=== PATIENT | female | born 1945 | race Caucasian/White ===

== ENCOUNTER 2016-04-20 13:25 | Emergency (ER) | payer MEDICARE ==
[~2016-04-20] VITALS: Ht 165.1 cm; Wt 115.0 kg
[2016-04-20 13:28] VITALS: BP 180/106; PULSE 80; RESP 20; TEMP 98.5; O2SAT 94
[2016-04-20 13:36] VITALS: TEMP 99.6
[2016-04-20] MEDS ORDERED: PRIL20CA9 PO (13:47)
[2016-04-20] MEDS ORDERED: FERR325T PO (13:47)
[2016-04-20] MEDS ORDERED: VALS1TAB64 PO (13:47)
[2016-04-20] MEDS ORDERED: OXYC-432 PO (13:47)
[2016-04-20] MEDS ORDERED: XANA1TAB2 PO (13:47)
[2016-04-20] MEDS ORDERED: ASPI-110 PO (13:47)
[2016-04-20] MEDS ORDERED: CELE20TA PO (13:47)
[2016-04-20] MEDS ORDERED: VIST25CA PO (14:10)
--- NOTE | 2016-04-20 14:11 | PD ---
HPI Chief Complaint: Psychiatric Symptoms Time Seen by Provider: 13:36 Travel History International Travel<30 days: No Contact w/Intl Traveler<30days: No Traveled to known affect area: No History of Present Illness HPI This 70-year-old woman who presents to the emergency department complaining of feeling poorly. She was discharged about an hour ago from [facility]. She states she was referred here because she was having anxiety. She states she was taking oxycodone regularly up until a couple days ago. She ran out of that she began to feel poorly, vomiting, chest pain, jitteriness. States she was admitted for tonight's of [facility] where they did lots of tests on her. States she was told everything was good discharge. She asked about treatment for her anxiety how bad she was feeling she was referred to [facility]. History Past Medical History Narrative Medical Borderline diabetes Anxiety and depression Chest pain Influenza Vaccination: Yes Social History Alcohol Use: No Tobacco Use: No Allergies-Medications (Allergen,Severity, Reaction): Coded Allergies: Lisinopril (Verified Allergy, Intermediate, COUGHING, 04/20/16) Reported Meds & Prescriptions Reported Meds & Active Scripts Active Reported Oxycodone-Acetaminophen 5-325 mg Tab 1 Tab PO TID PRN Xanax (Alprazolam) 1 Mg Tab 1 Mg PO BID Prilosec (Omeprazole) 20 Mg Cap 20 Mg PO DAILY Aspirin 81 (Aspirin) 81 Mg Tabdr 81 Mg PO DAILY Ferrous Sulfate 325 Mg Tab 350 Mg PO BID Celexa (Citalopram Hydrobromide) 20 Mg Tab 20 Mg PO DAILY Valsartan 80 Mg Tab 80 Mg PO DAILY Review of Systems Except as stated in HPI: all other systems reviewed are Neg Physical Exam Narrative GENERAL: 70-year-old woman, no acute distress. SKIN: Warm and dry. HEAD: Atraumatic. Normocephalic. EYES: Pupils equal and round. No scleral icterus. No injection or drainage. ENT: No nasal bleeding or discharge. Mucous membranes pink and moist. NECK: Trachea midline. No JVD. CARDIOVASCULAR: Regular rate and rhythm. No murmur appreciated. RESPIRATORY: No accessory muscle use. Clear to auscultation. Breath sounds equal bilaterally. GASTROINTESTINAL: Abdomen soft, non-tender, nondistended. Hepatic and splenic margins not palpable. MUSCULOSKELETAL: No obvious deformities. No clubbing. No cyanosis. No edema. NEUROLOGICAL: Awake and alert. No obvious cranial nerve deficits. Motor grossly within normal limits. Normal speech. PSYCHIATRIC: Anxious. Data Data Last Documented VS Vital Signs Date Time Temp Pulse Resp B/P Pulse Ox O2 Delivery O2 Flow Rate FiO2 04/20/16 13:36 99.6 04/20/16 13:28 80 20 180/106 94 Room Air MDM Medical Decision Making Medical Screen Exam Complete: Yes Emergency Medical Condition: Yes Differential Diagnosis Anxiety, wobbliness, opiate withdrawal, other Narrative Course Medical decision making 7 year-old woman presents emergency department hour after being discharged from the hospital for treatment of what sounds like probably opiate withdrawal symptoms. She apparently had a chest pain workup. She looks well. She is slightly tearful. She states she was treated for anxiety in the past. I asked about family or friends as she seems to be afraid to go home by herself. States her sister doesn't have time for her. I don't think there is any reason to readmit her to the hospital or keep her for an emergency psychiatric does not suicidal or homicidal. She was on benzodiazepines previously. I recommended that she follow-up with her primary doctor, use the Phenergan as needed for symptom relief. We'll give her Vistaril as needed for anxiety symptoms as well. Diagnosis Primary Impression: Anxiety Additional Impression: Opiate withdrawal Additional Instructions: Continue current medications. Continue promethazine/Phenergan as prescribed by Seema schafer as needed for vomiting. Use Vistaril as needed for anxiety. Follow-up with your primary doctor on Friday. Med/Other Pt SpecificInfo: Prescription(s) given Scripts Hydroxyzine Pamoate (Vistaril)25 Mg Cap25 Mg PO TID PRN (ANXIETY) #15 CAP Ref 0 Prov:Dickson Arciniega MD 04/20/16 Disposition: 01 DISCHARGE HOME Condition: Stable Dickson Arciniega MD Apr 20, 2016 14:11
== END 2016-04-20 15:08 | disposition home or self-care (01) ==
LOC: NEPC 13:25
DX: F41.9 Anxiety disorder, unspecified (principal); F11.23 Opioid dependence with withdrawal; R07.9 Chest pain, unspecified; R11.10 Vomiting, unspecified
CPT/HCPCS: 99283

== ENCOUNTER 2016-05-02 15:30 | Inpatient (IN) | payer OTHER, MEDICARE ==
[~2016-05-02] VITALS: Ht 165.1 cm; Wt 116.9 kg
[~2016-05-02 15:30] MED LIST: ASPI-110 PO; CELE20TA PO; FERR325T PO; OXYC-432 PO; PRIL20CA9 PO; VALS1TAB64 PO; VIST25CA PO; XANA1TAB2 PO
[2016-05-02 15:38] VITALS: BP 145/84; PULSE 97; RESP 16; TEMP 98.8; O2SAT 97
--- NOTE | 2016-05-02 15:57 | PD ---
HPI Chief Complaint: Psychiatric Symptoms Time Seen by Provider: 15:57 Travel History International Travel<30 days: No Contact w/Intl Traveler<30days: No Traveled to known affect area: No History of Present Illness HPI 70-year-old female presents to the emergency Department under Lacy act by her psychiatrist for bipolar 1 disorder, suicidal ideation. The patient does state that she will "wants to ". She states that she is sick of being in pain and she does not want to live anymore. She does also report hallucinations. Patient does report feeling nauseated. She does also report history of hypertension. She states she is on a blood pressure medication and Wellbutrin. The patient denies any attempt to hurt herself, but does state that she would like to . She denies any specific planned, but states "there are a lot of ways to kill myself". Patient reports being hospitalized for psychiatric illness in the past. She denies any other complaints at this time. PFSH Past Medical History Anxiety: Yes Depression: Yes Chest Pain: Yes Diabetes: Yes (BORDERLINE) Hypertension: Yes Psychiatric: Yes (ANXIETY / DEPRESSION) Social History Alcohol Use: No Tobacco Use: No Substance Use: No Allergies-Medications (Allergen,Severity, Reaction): Coded Allergies: Lisinopril (Verified Allergy, Intermediate, COUGHING, 05/02/16) Reported Meds & Prescriptions Reported Meds & Active Scripts Active Vistaril (Hydroxyzine Pamoate) 25 Mg Cap 25 Mg PO TID PRN Reported Tylenol-Codeine #3 (Acetaminophen-Codeine) 300-30 mg Tab 1 Tab PO Q6HR PRN Nitrofurantoin Macrocrystal 100 Mg Cap 100 Mg PO BID Flexeril (Cyclobenzaprine HCl) 10 Mg Tab 10 Mg PO DAILY Zofran (Ondansetron HCl) 4 Mg Tab 4 Mg PO Q6HR PRN Wellbutrin SR 12 HR (Bupropion HCl) 150 Mg Tab 150 Mg PO DAILY Trazodone (Trazodone HCl) 150 Mg Tab 150 Mg PO HS Xanax (Alprazolam) 1 Mg Tab 1 Mg PO BID Prilosec (Omeprazole) 20 Mg Cap 20 Mg PO DAILY Aspirin 81 (Aspirin) 81 Mg Tabdr 81 Mg PO DAILY Ferrous Sulfate 325 Mg Tab 350 Mg PO BID Celexa (Citalopram Hydrobromide) 20 Mg Tab 20 Mg PO DAILY Valsartan 80 Mg Tab 80 Mg PO DAILY Review of Systems Except as stated in HPI: all other systems reviewed are Neg Physical Exam Narrative GENERAL: Well-developed well-nourished elderly female patient, afebrile. SKIN: Warm and dry. HEAD: Normocephalic. Atraumatic. EYES: No scleral icterus. No injection or drainage. NECK: Supple, trachea midline. No JVD or lymphadenopathy. CARDIOVASCULAR: Regular rate and rhythm without murmurs, gallops, or rubs. RESPIRATORY: Breath sounds equal bilaterally. No accessory muscle use. Lungs sounds are clear to auscultation. GASTROINTESTINAL: Abdomen soft, non-tender, nondistended. MUSCULOSKELETAL: No cyanosis, or edema. BACK: Nontender without obvious deformity. No CVA tenderness. Data Data Last Documented VS Vital Signs Date Time Temp Pulse Resp B/P Pulse Ox O2 Delivery O2 Flow Rate FiO2 05/02/16 15:38 98.8 97 16 145/84 97 Orders Complete Blood Count With Diff (05/02/16 15:40) Comprehensive Metabolic Panel (05/02/16 15:40) Drug Screen, Random Urine (05/02/16 15:40) Alcohol (Ethanol) (05/02/16 15:40) Psych Screen (05/02/16 15:40) Urinalysis - C+S If Indicated (05/02/16 15:56) Ondansetron Odt (Zofran Odt) (05/02/16 16:00) Diet Regular Basic (05/02/16 Dinner) Ondansetron Odt (Zofran Odt) (05/02/16 18:15) Acetaminophen (Tylenol) (05/02/16 20:00) Magnesium Hydroxide Liq (Milk Of Magnesi (05/02/16 20:00) Al-Mag Hy-Si 40-40-4 Mg/Ml Liq (Mag-Al P (05/02/16 20:00) Nicotine 21 Mg Patch.24 Hr (Habitrol 21 (05/03/16 09:00) Remove Old Patch (05/02/16 21:00) Trazodone (Desyrel) (05/02/16 21:00) Labs Laboratory Tests Test 1/19/17 1/19/17 1/19/17 16:46 17:25 19:11 Sodium Level 134 MEQ/L Potassium Level 5.5 MEQ/L Chloride Level 104 MEQ/L Carbon Dioxide Level 21.8 MEQ/L Anion Gap 8 MEQ/L Blood Urea Nitrogen 6 MG/DL Creatinine 0.89 MG/DL Estimat Glomerular Filtration 63 ML/MIN Rate Random Glucose 90 MG/DL Calcium Level 9.2 MG/DL Total Bilirubin 0.4 MG/DL Aspartate Amino Transf 43 U/L (AST/SGOT) Alanine Aminotransferase 23 U/L (ALT/SGPT) Alkaline Phosphatase 108 U/L Total Protein 8.6 GM/DL Albumin 3.1 GM/DL Ethyl Alcohol Level LESS THAN 3 MG/DL Urine Color DARK-YELLOW Urine Turbidity CLEAR Urine pH 8.0 Urine Specific [place] 1.010 Urine Protein NEG mg/dL Urine Glucose (UA) NEG mg/dL Urine Ketones NEG mg/dL Urine Occult Blood NEG Urine Nitrite NEG Urine Bilirubin NEG Urine Urobilinogen LESS THAN 2.0 MG/DL Urine Leukocyte Esterase NEG Urine RBC LESS THAN 1 /hpf Urine WBC 1 /hpf Urine Squamous Epithelial 2 /hpf Cells Urine Bacteria RARE /hpf Microscopic Urinalysis Comment CULT NOT INDICATED Urine Opiates Screen POS Urine Barbiturates Screen NEG Urine Amphetamines Screen NEG Urine Benzodiazepines Screen NEG Urine Cocaine Screen NEG Urine Cannabinoids Screen NEG White Blood Count 8.1 TH/MM3 Red Blood Count 3.89 MIL/MM3 Hemoglobin 11.7 GM/DL Hematocrit 35.2 % Mean Corpuscular Volume 90.6 FL Mean Corpuscular Hemoglobin 30.0 PG Mean Corpuscular Hemoglobin 33.1 % Concent Red Cell Distribution Width 15.6 % Platelet Count 368 TH/MM3 Mean Platelet Volume 7.5 FL Neutrophils (%) (Auto) 69.8 % Lymphocytes (%) (Auto) 18.4 % Monocytes (%) (Auto) 9.1 % Eosinophils (%) (Auto) 1.8 % Basophils (%) (Auto) 0.9 % Neutrophils # (Auto) 5.7 TH/MM3 Lymphocytes # (Auto) 1.5 TH/MM3 Monocytes # (Auto) 0.7 TH/MM3 Eosinophils # (Auto) 0.1 TH/MM3 Basophils # (Auto) 0.1 TH/MM3 CBC Comment DIFF FINAL Differential Comment MDM Medical Decision Making Medical Screen Exam Complete: Yes Emergency Medical Condition: Yes Medical Record Reviewed: Yes Differential Diagnosis bipolar disorder versus depression versus anxiety versus schizophrenia versus psychosis Narrative Course 70-year-old female presents to the emergency Department a Lacy act by her psychiatrist for suicidal ideation. CBC, CMP, urine drug screen, alcohol level , UA are ordered and pending. CBC shows no acute abnormalities. CMP shows hyperkalemia 5.5, no other acute abnormalities. Urine drug screen is positive for opiates. Alcohol level is less than 3. UA is negative for infection. Patient is given Kayexalate 15 g by mouth. Patient is medically cleared for psychiatric screening and disposition. Mental health screening discussed with the patient. Psychiatric screen ordered. Diagnosis Primary Impression: Bipolar disorder Qualified Code: F31.32 - Bipolar affective disorder, currently depressed, moderate Additional Instructions: The patient is medically cleared for psychiatric screening and disposition. Condition: Stable MarvAdri May 02, 2016 15:57
[2016-05-02] MEDS ORDERED: ONDANSETRON ODT 4 MG TAB PO ONE ×2 (16:00→18:15)
[2016-05-02 17:22] LABS: ANION GAP 8 MEQ/L (5-15)
[2016-05-02 17:23] LABS: ALKALINE PHOSPHATASE 108 U/L (45-117); ALT (GPT) 23 U/L (10-53); AST (GOT) 43 U/L (15-37); BICARBONATE 21.8 MEQ/L (21.0-32.0); BLOOD UREA NITROGEN 6 MG/DL (7-18); CHLORIDE 104 MEQ/L (98-107); GLOMERULAR FILTRATION RATE 63 ML/MIN (>89); POTASSIUM 5.5 MEQ/L (3.5-5.1); SODIUM (NA) 134 MEQ/L (136-145); TOTAL BILIRUBIN ADULT 0.4 MG/DL (0.2-1.0)
[2016-05-02] MEDS ORDERED: TRAZ150T75 PO (17:41)
[2016-05-02] MEDS ORDERED: BENZ2TAB PO (17:41)
[2016-05-02] MEDS ORDERED: BUPR150CR PO (17:41)
[2016-05-02] MEDS ORDERED: RISP1TAB2 PO (17:41)
[2016-05-02] MEDS ORDERED: ZOFR4TAB PO (18:02)
[2016-05-02] MEDS ORDERED: NITR1CAP36 PO (18:03)
[2016-05-02] MEDS ORDERED: CYCL1TAB29 PO (18:03)
[2016-05-02] MEDS ORDERED: TYLETAB34 PO (18:05)
[2016-05-02 18:08] LABS: AMPHETAMINE, URINE NEG (NEG); BARBITURATES, URINE NEG (NEG); COCAINE, URINE NEG (NEG)
[2016-05-02 18:12] LABS: BACTERIA, URINE RARE /hpf; BLOOD, URINE NEG (NEG); COMMENT (UR) CULT NOT INDICATED; CULTURE IF INDICATED CULT NOT INDICATED; GLUCOSE,URINE NEG (NEG); KETONE, URINE NEG (NEG); NITRITE,URINE NEG (NEG); SQUAMOUS EPITHELIAL CELL URINE 2 /hpf (0-5); URINE COLOR DARK-YELLOW (YELLW/STRAW)
[2016-05-02 19:41] LABS: AUTOMATED NEUTROPHIL # 5.7 TH/MM3 (1.8-7.7); BASOPHIL # 0.1 TH/MM3 (0-0.2); BASOPHIL % 0.9 % (0.0-2.0); EOSINOPHIL # 0.1 TH/MM3 (0-0.4); EOSINOPHIL % 1.8 % (0.0-4.0); HEMATOCRIT 35.2 % (35.0-46.0); HEMO FLAGS DIFF FINAL; LYMPH % 18.4 % (9.0-44.0); LYMPHOCYTE # 1.5 TH/MM3 (1.0-4.8); MEAN CELL VOLUME 90.6 FL (80.0-100.0); MEAN CORPUSCULAR HGB CONC 33.1 % (32.0-36.0); MONO % 9.1 % (0.0-8.0); NEUT % 69.8 % (16.0-70.0); PLATELET COUNT 368 TH/MM3 (150-450); RED BLOOD COUNT 3.89 MIL/MM3 (4.00-5.30); RED CELL DISTRIBUTION WIDTH 15.6 % (11.6-17.2); WHITE BLOOD COUNT 8.1 TH/MM3 (4.0-11.0)
[2016-05-02] MEDS ORDERED: ALUMINUM/MAGNESIUM/SIMETH 30 ML CUP PO PRN (20:00)
[2016-05-02] MEDS ORDERED: MAGNESIUM HYDROXIDE SUSP 30 ML CUP PO PRN (20:00)
[2016-05-02] MEDS ORDERED: SODIUM POLYSTYRENE SULFONATE SUSP 15 GM/60 ML CUP PO ONE (20:15)
[2016-05-02] MEDS ORDERED: LORazepam 2 MG/ML VIAL IM PRN (20:30)
[2016-05-02] MEDS: ACETAMINOPHEN 325 MG TAB PO PRN (20:49)
[2016-05-02] MEDS ORDERED: traZODone HCL 50 MG TAB PO SCH (21:00)
[2016-05-02] MEDS ORDERED: REMOVE OLD NICOTINE PATCH T-DERMAL SCH (21:00)
[2016-05-02 21:10] VITALS: BP_SYST 117; BP_SYST 129; BP_DIAS 58; BP_DIAS 78; PULSE 78; PULSE 81; RESP 18; O2SAT 97; O2SAT 99
[2016-05-02 21:35] VITALS: BP 186/95; PULSE 87; RESP 18; TEMP 99.7; O2SAT 97
[2016-05-02] MEDS ORDERED: cloNIDine HCL 0.1 MG TAB PO SCH (22:15)
[2016-05-02 23:00] VITALS: BP 166/70; PULSE 91; RESP 17; TEMP 99.1; O2SAT 93
[2016-05-03 06:35] VITALS: BP 131/57; PULSE 81; RESP 16; TEMP 97.1; O2SAT 95
[2016-05-03] MEDS ORDERED: NICOTINE 21 MG/24 HR PATCH T-DERMAL SCH (09:00)
[2016-05-03 10:44] LABS: ALKALINE PHOSPHATASE 96 U/L (45-117); ALT (GPT) 20 U/L (10-53); ANION GAP 6 MEQ/L (5-15); AST (GOT) 15 U/L (15-37); BICARBONATE 29.6 MEQ/L (21.0-32.0); BLOOD UREA NITROGEN 7 MG/DL (7-18); CHLORIDE 102 MEQ/L (98-107); GLOMERULAR FILTRATION RATE 52 ML/MIN (>89); POTASSIUM 4.3 MEQ/L (3.5-5.1); SODIUM (NA) 138 MEQ/L (136-145); TOTAL BILIRUBIN ADULT 0.3 MG/DL (0.2-1.0)
[2016-05-03] MEDS ORDERED: ACETAMINOPHEN 325 MG TAB PO PRN (10:45)
[2016-05-03] MEDS ORDERED: MAGNESIUM HYDROXIDE SUSP 30 ML CUP PO PRN (10:45)
[2016-05-03] MEDS ORDERED: ALUMINUM/MAGNESIUM/SIMETH 30 ML CUP PO PRN (10:45)
--- NOTE | 2016-05-03 11:44 | HHI.HP ---
Provisional Diagnosis Admission Date May 02, 2016 at 20:20 [place] I. 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 Express and informed consent means consent voluntarily given in writing, by a competent person, after sufficient explanation and disclosure of the subject matter involved to enable the person to make a knowing and willful decision without any element of force, fraud, deceit, duress, or other form of constraint or coercion. This person is 18 years of age or older, is not now known to be incompetent to consent to treatment with a guardian advocate, and does not have a health care surrogate or proxy currently making medical treatment decisions. I have found this person to be one of the following: [] Competent to provide express and informed consent, as defined above, for voluntary admission to this facility and is competent to provide express and informed consent for treatment. He/she has the consistent capacity to make well reasoned, willful, and knowing decisions concerning his or her medical or mental health treatment. The person fully and consistently understands the purpose of the admission for examination/placement and is fully capable of personally exercising all rights assured [place] [x] Incompetent to provide express and informed consent to voluntary admission, and this is incompetent to provide express and informed consent to treatment. The person must be transferred to involuntary status and a petition for a guardian advocate filed with the Circuit Court. [] Refusing to provide express and informed consent to voluntary admission but is competent to provide express and informed consent for treatment. The person must be discharged or transferred to involuntary status. Form shall be completed within 24 hours of a person's arrival at the receiving facility and filed in the clinical record of each person: 1. Admitted on a voluntary basis 2. Permitted to provide express and informed consent to his/her own treatment 3. Allowed to transfer from involuntary to voluntary status 4. Prior to permitting a person to consent to his or her own treatment after having been previously found incompetent to consent to treatment. History of Present Illness Capacity: Has Capacity HPI Patient is a 70-year-old Afro-Nam[place]ian female comes here under Lacy act signed by a Nayana ROCK from [address] dated 05/02/16 3:30 PM stating bipolar 1 disorder depressed. Patient states she has re -occurring thoughts of . "I am so sick, painful, hopeless. I need help desperately I want to . I consequently think about it" "all I want to do is , lying in my bed, in the dark and just . I feel like there is this big black hole and I can't get out. I am not eating and not doing anything" client' s daughter relates "she was in great despair after hospitalization. Cannot hold head up, won't shower, won't converse, I am really worried about her" "she has started seeing visions people paranoia. [facility] discharge on Wellbutrin 150 mg SR a.m. and trazodone 50 mg at bedtime. Patient seen screened in the ED urine toxicology positive for opiates potassium level yesterday afternoon of 5.5 when rechecked this a.m. and is now 4.3. laying quietly in her bed medical student she has been present throughout session. Patient in bed with calm though somewhat guarded giving a history that at times is confusing and contradictory both in his timetable location and duration of situation. Patient stated she is been in this area for perhaps 10 years living with her sister and [id number] and sisters to teenaged children. She states she gets along well with them. However she also has 2 daughters in the [facility] that she states she visits frequently. She states history of mental health issues seen by psychiatrist in [place] about 10 years ago was hospitalized at that time for similar episodes including vague auditory/visual hallucinations. Was placed on Celexa Respinol and Cogentin per patient's history. Our patient given confused history about present mental health care stating she has seen for the first time the nurse practitioner through [facility] that initiated the Lacy act. She acknowledges the of vague visual /auditory hallucinations that are persistent acknowledges persistent suicidal ideation intent and plan, that she would take the suicide pill albeit reluctantly. She acknowledges both initial and middle insomnia, a.m. anergy, though she states her appetite is okay. She acknowledges some increased social isolation and decreased coping skills. She denies any self-medication alcohol or other drugs. Patient does deny any past history of physical or sexual abuse , denies drug use with her family though acknowledges her father was an alcoholic.. Patient continues quite vague about her past use of opiates. Is confusing also related to the use of Tylenol 3 In any event at the present time patient does meet criteria for acute involuntary inpatient psychiatric hospitalization. I will do first opinion request second opinion. Life which he does have capacity to participate in her treatment. Will refrain from any opiates or benzodiazepines at the present time. We'll continue her Celexa 40 mg daily and Remeron 15 mg at at bedtime, will discontinue her Wellbutrin, will decrease her at bedtime trazodone to 100 mg. And Seroquel 50 mg at at bedtime and Seroquel 25 mg in the a.m. and at 4 PM. We will invite family members to treatment team meeting on 05/06. Also have hospitalist consult with us with his lady Review of Systems ROS Limitations: Clinical Condition Constitutional: COMPLAINS OF: Fatigue, Change in appetite Endocrine: DENIES: Abnorml menstrual pattern, Heat/cold intolerance, Polydipsia , Polyuria, Polyphagia Eyes: DENIES: Blurred vision, Diplopia, Eye inflammation, Eye pain, Vision loss , Photosensitivity, Double Vision Ears, nose, mouth, throat: DENIES: Tinnitus, Hearing loss, Vertigo, Nasal discharge, Oral lesions, Throat pain, Hoarseness, Ear Pain, Running Nose, Epistaxis, Sinus Pain, Toothache, Odynophagia Respiratory: DENIES: Apneas, Cough, Snoring, Wheezing, Hemoptysis, Sputum production, Shortness of breath Cardiovascular: DENIES: Chest pain, Palpitations, Syncope, Dyspnea on Exertion , PND, Lower Extremity Edema, Orthopnea, Claudication Gastrointestinal: DENIES: Abdominal pain, Black stools, Bloody stools, Constipation, Diarrhea, Nausea, Vomiting, Difficulty Swallowing, Anorexia Genitourinary: DENIES: Abnormal vaginal bleeding, Dysmenorrhea, Dyspareunia, Sexual dysfunction, Urinary frequency, Urinary incontinence, Urgency, Hematuria , Dysuria, Nocturia, Vaginal discharge Musculoskeletal: DENIES: Joint pain, Muscle aches, Stiffness, Joint Swelling, Back pain, Neck pain Integumentary: DENIES: Abnormal pigmentation, Pruritus, Rash, Nail changes, Breast masses, Breast skin changes, Nipple discharge Hematologic/lymphatic: DENIES: Bruising, Lymphadenopathy Immunologic/allergic: DENIES: Eczema, Urticaria Neurologic: DENIES: Abnormal gait, Headache, Localized weakness, Paresthesias, Seizures, Speech Problems, Tremor, Poor Balance Psychiatric: COMPLAINS OF: Anxiety, Confusion, Mood changes, Depression, Hallucinations, Suicidal Ideation Past Psych History Psychological trauma history Patient denies physical or sexual abuse Violence risk - others (6 mos) Low Violence risk - self (6 mos) Patient actively suicidal states would probably take the suicide pill Substance Abuse History Drugs/Alcohol past 12 months Denies Past Family Social History Coded Allergies: Lisinopril (Verified Allergy, Intermediate, COUGHING, 05/02/16) Past Medical History Complex please see hospitalist consult Active Scripts Hydroxyzine Pamoate (Vistaril)25 Mg Cap25 Mg PO TID PRN (ANXIETY) #15 CAP Ref 0 Prov:Dickson Arciniega MD 04/20/16 Reported Medications Acetaminophen-Codeine (Tylenol-Codeine #3)300-30 mg Tab1 Tab PO Q6HR PRN (PAIN) Ref 0 05/02/16 Nitrofurantoin Macrocrystal 100 Mg [id number] Mg PO BID Ref 0 05/02/16 Cyclobenzaprine (Flexeril)10 Mg Tab10 Mg PO DAILY #90 TAB Ref 0 05/02/16 Ondansetron (Zofran)4 Mg Tab4 Mg PO Q6HR PRN (NAUSEA) Ref 0 05/02/16 Bupropion HCl ER 12 HR (Wellbutrin SR 12 HR)150 Mg [id number] Mg PO DAILY Ref 0 05/02/16 Trazodone 150 Mg [id number] Mg PO HS #30 TAB Ref 0 05/02/16 Alprazolam (Xanax)1 Mg Tab1 Mg PO BID Ref 0 04/20/16 Omeprazole (Prilosec)20 Mg Cap20 Mg PO DAILY #30 CAP Ref 0 04/20/[address] (Aspirin 81)81 Mg [id number] Mg PO DAILY Ref 0 04/20/16 Ferrous Sulfate 325 Mg [id number] Mg PO BID #30 TAB Ref 0 04/20/16 Citalopram (Celexa)20 Mg Tab20 Mg PO DAILY #30 TAB Ref 0 04/20/16 Valsartan 80 Mg Tab80 Mg PO DAILY #30 TAB Ref 0 04/20/16 Discontinued Reported Medications Benztropine 2 Mg Tab2 Mg PO DAILY #60 TAB Ref 0 05/02/16 Risperidone 1 Mg Tab1 Mg PO BID #30 TAB Ref 0 05/02/16 Oxycodone-Acetaminophen 5-325 mg Tab1 Tab PO TID PRN (PAIN SCALE 1 TO 10) Ref 0 04/20/16 Current Medications Medications (Trade) Dose Ordered Sig/Janett Route Start Time Stop Time Status Last Admin (Tylenol) 650 mg Q4H PRN PO 05/02/16 20:00 05/02/16 20:49 (Milk Of Magnesia Liq) 30 ml DAILY PRN PO 05/02/16 20:00 (Mag-Al Plus Susp Liq) 30 ml Q6H PRN PO 05/02/16 20:00 05/03/16 02:56 (Desyrel) 150 mg HS PO 05/02/16 21:00 05/02/16 21:00 (Ativan) 0.5 mg Q12H PRN PO 05/02/16 20:30 (Ativan Inj) 0.5 mg Q12H PRN IM 05/02/16 20:30 05/02/16 20:48 (Tylenol) 650 mg Q4H PRN PO 05/03/16 10:45 UNV (Milk Of Magnesia Liq) 30 ml DAILY PRN PO 05/03/16 10:45 UNV (Mag-Al Plus Susp Liq) 30 ml Q6H PRN PO 05/03/16 10:45 UNV (Ecotrin Ec) 81 mg DAILY PO 05/04/16 09:00 UNV (CeleXA) 20 mg DAILY PO 05/04/16 09:00 UNV (Ferrous Sulfate) 350 mg BID PO 05/03/16 21:00 UNV (Protonix) 20 mg DAILY PO 05/04/16 09:00 UNV (Diovan) 80 mg DAILY PO 05/04/16 09:00 UNV Non-Formulary Medication 100 mg BID PO 05/03/16 21:00 UNV Non-Formulary Medication 4 mg Q6HR PRN PO 05/03/16 10:45 UNV (Desyrel) 100 mg HS PO 05/03/16 21:00 UNV (SEROquel) 25 mg BID@,16 PO 05/03/16 16:00 UNV (SEROquel) 50 mg HS PO 05/03/16 21:00 UNV (Remeron) 15 mg HS PO 05/03/16 21:00 UNV Family History Patient denies mental illness in the family, though father is alcoholic Social History Patient lives with extended family her sister and [id number] and their 2 children Patient's Strengths (min. 2) Patient verbal irritable [facility] Physical Exam Patient seen screened in ED exam reviewed and agreed with vital signs blood pressure 131/57 pulse 81 respirations 16 Vital Signs Vital Signs Date Time Temp Pulse Resp B/P Pulse Ox O2 Delivery O2 Flow Rate FiO2 05/03/16 06:35 97.1 81 16 131/57 95 05/02/16 21:10 Room Air I/O 05/02/16 05/02/16 05/03/16 08:00 16:00 00:00 Intake Total 960 ml Balance 960 ml Mental Status Examination Alert oriented overweight Afro-N[place] female lying in a bed with poor eye contact, with hair and long bleached tommy tied in a bun on top of her head. She is cooperative though somewhat guarded and at times contradictory in her statements Appearance Somewhat disheveled Speech: Unremarkable, Slow, Circumstantial, Tangential Orientation: x3 Memory: Unremarkable (times appears to be somewhat confused and contradictory) Thought Process: Linear Thought Content: Unremarkable Hallucination Type: Auditory (vague), Visual (vague) Attention and Concentration: Other (they are) Suicidal Ideation: Yes (patient states would probably take the suicide pill) Previous Suicide Attempts: Yes (in [place] about 10 years ago) Homicidal Ideation: No Previous Homicide Attempts: No Insight: Poor Judgement: Poor Affect: Other (decreased range and intensity) Mood: Sad Motor Activity: Normal gait (will have PT assess) Assessment & Plan Problem List: (1) Major depressive disorder, recurrent episode, severe, with psychosis ICD Code: F33.3 Assessment & Plan Estimated LOS: days at this time patient meets criteria for involuntary psychiatric consultation the Lacy act I'll do first opinion requests a second opinion, the hospitalist consult was see medication changes and modifications above Discharge Planning To be determined Request HC Surrog/Guard Advoc?: No Ronak Klein MD May 03, 2016 11:43
[2016-05-03] MEDS: ONDANSETRON ODT 4 MG TAB PO PRN ×2 (11:52→21:55)
--- NOTE | 2016-05-03 11:56 | PD.PN.STU ---
Subjective Remarks The patient is a 70 year-old female who was admitted into the 2500 psych unit after being seen in the ED on evening, complaining of anxiety, depression, suicidal thoughts, and nausea. She says these feelings have been present for the past 3 weeks. She feels hopeless and does not want to get out of bed, shower, or participate in any activities. She experienced similar symptoms in 2011 when she was visiting her daughter in [place]. She describes having visual hallucinations and images of killing herself. At that time, she was hospitalized X10 days and prescribed risperidone, cogentin, and celexa, which she admits to discontinuing X1 month ago due to urinary retention. Today she still has suicidal ideation, but no plan. She also describes visual hallucinations of people disappearing and objects changing colors. Past medical history is significant for osteoarthritis, sciatica, pre-diabetes, colon cancer resection (1999), and cholecystectomy. Medications include Tylenol 3, Oxycodone 10/325, and Wellbutrin. The patient was seen in the [place] ED X2 weeks ago for opiate withdrawal. Family history: Major depressive disorder (daughter) Alcoholism (father) Epilepsy (mother) Social history: The patient was born in [place], [place] and was raised mostly by her aunt after her mom when the patient was only 2 years old. She moved to [place] X10 years ago. She lives with her sister, sister's , 2 kids, and 2 dogs. She is from her estranged . She has two daughters-- one in [place], [place] and the other in [place]. Patient quit smoking over 35 years ago. She denies use of illicit drugs and alcohol. Objective Vitals Vital Signs Date Time Temp Pulse Resp B/P Pulse Ox O2 Delivery O2 Flow Rate FiO2 05/03/16 06:35 97.1 81 16 131/57 95 05/02/16 23:00 99.1 91 17 166/70 93 05/02/16 21:35 99.7 87 18 186/95 97 05/02/16 21:10 81 18 129/78 99 Room Air 05/02/16 15:38 98.8 97 16 145/84 97 I/O 05/02/16 05/02/16 05/02/16 05/03/16 05/03/16 05/03/16 07:00 15:00 23:00 07:00 15:00 23:00 Intake Total 960 ml 240 ml Balance 960 ml 240 ml Intake Oral 960 ml 240 ml # Voids 1 Result Diagram: 05/02/16 19105/03/16 0914 Objective Remarks Mental Status: The patient is a well-developed, overweight, female who appears her stated age. She has long bleached tommy tied up at the top of her head and wears hospital clothing while lying in her bed in the supine position. She was cooperative, but had poor eye contact. Her speech was of normal rhythm, rate, and volume. Thought process is logical and content is remarkable for visual hallucinations. She does seem to have some recent memory impairment, forgetting some of her medical history. Affect appeared slightly more positive than her stated mood of "depressed." Perception, judgement, and insight seem fair. She was alert and oriented to time , person, and place. MMSE: 25/30 A/P Assessment and Plan The patient describes recurrent severe depression with psychotic features and suicidal ideation. In addition, she has joint pain and nausea. For depression and anxiety: Celexa 20 mg daily and Seroquel 25 mg at 9 am and 4 pm. Seroquel 50 mg qhs. Remeron qhs Trazadone 150 mg qhs For joint pain: Tylenol 650 mg q4 prn For nausea: odansetron 4 mg prn Due to some discrepancies between what was told to her psychiatrist, Dr. Klein, her counselor, and I, it would be best to contact the patients daughters and sister, if we are given permission. Invite family to treatment team meeting on Friday to get a better understanding of the patient's medical, psychiatric, and social history. 05/06/16 Above note written by medical student Antonietta reviewed and agreed with. Patient seen by me independently on 05/03 and separate progress note also written Tg Pimentel M3 May 03, 2016 11:56 Ronak Klein MD May 06, 2016 14:45
[2016-05-03] MEDS: ACETAMINOPHEN 325 MG TAB PO PRN ×3 (12:14→21:55)
[2016-05-03] MEDS: QUEtiapine FUMARATE 25 MG TAB PO SCH ×2 (16:00→21:11)
--- NOTE | 2016-05-03 16:03 | PD.CONS ---
HPI Service [facility] Consult Requested By Psychiatry Reason for Consult Comanagement of diabetes and hypertension Primary Care Physician Unknown Diagnoses: History of Present Illness This is a 70-year-old female with history of hypertension, diabetes, depression and anxiety presenting to the emergency department with suicidal ideations. Patient is now admitted to the psych unit. Per patient, she was also diagnosed with urinary tract infection about a week ago, she has finished about 5-6 days of antibiotics. She does not know the bacteria. No further urinary symptoms, frequency or urgency. Patient denies any fever or chills. Patient also further denies any chest pain, shortness of breath. However she complains that she is always nauseated and feels that she is gagging but no abdominal pain or vomiting. Review of Systems ROS Limitations: Other (All other pertinent systems were reviewed and are negative.) Past Family Social History Allergies: Coded Allergies: Lisinopril (Verified Allergy, Intermediate, COUGHING, 05/02/16) Past Medical History Anemia UTI Colon cancer Chronic knee pain Past Surgical History Colectomy Hernia repair Elbow surgery Reported Medications Vistaril (Hydroxyzine Pamoate) 25 Mg Cap 25 Mg PO TID PRN Tylenol-Codeine #3 (Acetaminophen-Codeine) 300-30 mg Tab 1 Tab PO Q6HR PRN Nitrofurantoin Macrocrystal 100 Mg Cap 100 Mg PO BID Flexeril (Cyclobenzaprine HCl) 10 Mg Tab 10 Mg PO DAILY Zofran (Ondansetron HCl) 4 Mg Tab 4 Mg PO Q6HR PRN Wellbutrin SR 12 HR (Bupropion HCl) 150 Mg Tab 150 Mg PO DAILY Trazodone (Trazodone HCl) 150 Mg Tab 150 Mg PO HS Xanax (Alprazolam) 1 Mg Tab 1 Mg PO BID Prilosec (Omeprazole) 20 Mg Cap 20 Mg PO DAILY Aspirin 81 (Aspirin) 81 Mg Tabdr 81 Mg PO DAILY Ferrous Sulfate 325 Mg Tab 350 Mg PO BID Celexa (Citalopram Hydrobromide) 20 Mg Tab 20 Mg PO DAILY Valsartan 80 Mg Tab 80 Mg PO DAILY Family History Hypertension-sister Diabetes, another sister Social History Patient denies smoking, significant alcohol intake or use of any illicit drugs. Physical Exam Vital Signs Vital Signs Date Time Temp Pulse Resp B/P Pulse Ox O2 Delivery O2 Flow Rate FiO2 05/03/16 06:35 97.1 81 16 131/57 95 05/02/16 23:00 99.1 91 17 166/70 93 05/02/16 21:35 99.7 87 18 186/95 97 05/02/16 21:10 81 18 129/78 99 Room Air Physical Exam Not in distress, well-nourished, looks stated age PERRL, pink conjunctiva without injection, anicteric Nose without bleeding, airway patent, oropharynx clear Supple neck Normal rate and regular rhythm, no murmurs gallops or rubs appreciated. Clear to auscultation and symmetric bilaterally, normal respiratory effort. Normal bowel sounds, soft, non-tender, nondistended, no guarding. Obese Extremities without clubbing, cyanosis, trace edema. No rash of generalized distribution. Skin is warm and dry. AAO x3, no cranial nerve deficits, moves all 4 extremities Laboratory Laboratory Tests Test 05/02/16 05/02/16 05/02/16 05/03/16 16:46 17:25 19:11 09:14 Sodium Level 134 138 Potassium Level 5.5 4.3 Chloride Level 104 102 Carbon Dioxide Level 21.8 29.6 Anion Gap 8 6 Blood Urea Nitrogen 6 7 Creatinine 0.89 1.04 Estimat Glomerular Filtration 63 52 Rate Random Glucose 90 129 Calcium Level 9.2 8.6 Total Bilirubin 0.4 0.3 Aspartate Amino Transf 43 15 (AST/SGOT) Alanine Aminotransferase 23 20 (ALT/SGPT) Alkaline Phosphatase 108 96 Total Protein 8.6 7.4 Albumin 3.1 2.9 Ethyl Alcohol Level LESS THAN 3 Urine Color DARK-YELLOW Urine Turbidity CLEAR Urine pH 8.0 Urine Specific [place] 1.010 Urine Protein NEG Urine Glucose (UA) NEG Urine Ketones NEG Urine Occult Blood NEG Urine Nitrite NEG Urine Bilirubin NEG Urine Urobilinogen LESS THAN 2.0 Urine Leukocyte Esterase NEG Urine RBC LESS THAN 1 Urine WBC 1 Urine Squamous Epithelial 2 Cells Urine Bacteria RARE Microscopic Urinalysis Comment CULT NOT INDICATED Urine Opiates Screen POS Urine Barbiturates Screen NEG Urine Amphetamines Screen NEG Urine Benzodiazepines Screen NEG Urine Cocaine Screen NEG Urine Cannabinoids Screen NEG White Blood Count 8.1 Red Blood Count 3.89 Hemoglobin 11.7 Hematocrit 35.2 Mean Corpuscular Volume 90.6 Mean Corpuscular Hemoglobin 30.0 Mean Corpuscular Hemoglobin 33.1 Concent Red Cell Distribution Width 15.6 Platelet Count 368 Mean Platelet Volume 7.5 Neutrophils (%) (Auto) 69.8 Lymphocytes (%) (Auto) 18.4 Monocytes (%) (Auto) 9.1 Eosinophils (%) (Auto) 1.8 Basophils (%) (Auto) 0.9 Neutrophils # (Auto) 5.7 Lymphocytes # (Auto) 1.5 Monocytes # (Auto) 0.7 Eosinophils # (Auto) 0.1 Basophils # (Auto) 0.1 CBC Comment DIFF FINAL Differential Comment Result Diagram: 05/02/16 1911 05/03/16 0914 Assessment and Plan Assessment and Plan This is a 70-year-old female admitted to psych unit for suicidal ideations. We were consulted for management of UTI, hypertension and other medical conditions Hypertension, uncontrolled-restart losartan, clonidine as needed. Likely GERD-patient has nausea and gagging, no vomiting. No stomach pain. Start Protonix. Monitor. Zofran as needed. Anemia-restart ferrous sulfate Recent UTI-finishing Macrobid for 3 more days, continue Macrobid, repeat urinalysis unremarkable. Chronic knee pain-adrenal for now. We will follow along for now, if blood pressure stable, we will sign off. Umer Goetz MD May 03, 2016 16:03
[2016-05-03 18:00] VITALS: BP 165/71; PULSE 77; RESP 16; TEMP 98.3; O2SAT 94
[2016-05-03 20:00] VITALS: BP 137/73; PULSE 80; O2SAT 98
[2016-05-03] MEDS ORDERED: traZODone HCL 50 MG TAB PO SCH (21:00)
[2016-05-03] MEDS: MIRTAZAPINE 15 MG TAB PO SCH (21:11)
[2016-05-03] MEDS: FERROUS SULFATE 325 MG (65 MG ELEMENTAL IRON) TAB PO SCH (21:11)
[2016-05-03] MEDS: NITROFURANTOIN MONOHYD MACROCR 100 MG CAP PO SCH (21:11)
[2016-05-03] MEDS: traZODone HCL 100 MG TAB PO SCH (21:11)
[2016-05-04] MEDS: ONDANSETRON ODT 4 MG TAB PO PRN ×2 (05:26→11:44)
[2016-05-04] MEDS: ACETAMINOPHEN 325 MG TAB PO PRN ×4 (05:27→23:37)
[2016-05-04 05:33] VITALS: BP 121/66; PULSE 83; RESP 17; TEMP 98.4; O2SAT 94
[2016-05-04 08:10] LABS: FREE T4 1.37 NG/DL (0.76-1.46)
[2016-05-04] MEDS: VALSARTAN 80 MG TAB PO SCH (09:00)
[2016-05-04] MEDS: FERROUS SULFATE 325 MG (65 MG ELEMENTAL IRON) TAB PO SCH ×2 (09:02→21:21)
[2016-05-04] MEDS: QUEtiapine FUMARATE 25 MG TAB PO SCH ×3 (09:02→21:22)
[2016-05-04] MEDS: ASPIRIN EC 81 MG TABEC PO SCH (09:02)
[2016-05-04] MEDS: NITROFURANTOIN MONOHYD MACROCR 100 MG CAP PO SCH ×2 (09:02→21:22)
[2016-05-04] MEDS: PANTOPRAZOLE SOD 20 MG DELAYED RELEASE TAB PO SCH (09:02)
[2016-05-04] MEDS: CITALOPRAM HYDROBROMIDE 20 MG TAB PO SCH (09:02)
[2016-05-04 09:48] LABS: BACTERIA, URINE RARE /hpf; BLOOD, URINE NEG (NEG); COMMENT (UR) CULT NOT INDICATED; CULTURE IF INDICATED CULT NOT INDICATED; GLUCOSE,URINE NEG (NEG); KETONE, URINE NEG (NEG); NITRITE,URINE NEG (NEG); PH, URINE 6.5 (5.0-8.5); SQUAMOUS EPITHELIAL CELL URINE <1 /hpf (0-5); URINE COLOR YELLOW (YELLW/STRAW)
--- NOTE | 2016-05-04 15:05 | PD.CONS ---
Provisional Diagnosis Admission Date May 02, 2016 at 20:20 [place] I. Major depressive disorder recurrent severe with psychosis with suicidal ideation intent and plan F 33.3 History of Present Illness Service Psychiatry Consult Requested By Psychiatry Reason for Consult 2nd opinion Primary Care Physician Unknown HPI Pt is a 70YOAAF who presents under a BA taken out by outpatient psychiatric ANRP alleging that suicidal ideations and depression. Pt reports that is sick and tired of being depressed and anxious and has been having increasing thoughts to commit suicide. She states that today she is feeling more hopeful because she is tolerating medication changes without side effects and believes that "these doctors may be able to figure it out and help me." She states that SI persists and she has been reading her bible to try and distract from these thoughts which are disturbing. No HI. She denies psychosis today but chart and RN state recent history of paranoia and seeing faces. Review of Systems Psychiatric: COMPLAINS OF: Mood changes, Depression, Suicidal Ideation Past Family Social History Coded Allergies: Lisinopril (Verified Allergy, Intermediate, COUGHING, 05/02/16) Past Medical History recent hospitalization at [facility] Active Scripts Hydroxyzine Pamoate (Vistaril)25 Mg Cap25 Mg PO TID PRN (ANXIETY) #15 CAP Ref 0 Prov:Dickson Arciniega MD 04/20/16 Reported Medications Acetaminophen-Codeine (Tylenol-Codeine #3)300-30 mg Tab1 Tab PO Q6HR PRN (PAIN) Ref 0 05/02/16 Nitrofurantoin Macrocrystal 100 Mg [id number] Mg PO BID Ref 0 05/02/16 Cyclobenzaprine (Flexeril)10 Mg Tab10 Mg PO DAILY #90 TAB Ref 0 05/02/16 Ondansetron (Zofran)4 Mg Tab4 Mg PO Q6HR PRN (NAUSEA) Ref 0 05/02/16 Bupropion HCl ER 12 HR (Wellbutrin SR 12 HR)150 Mg [id number] Mg PO DAILY Ref 0 05/02/16 Trazodone 150 Mg [id number] Mg PO HS #30 TAB Ref 0 05/02/16 Alprazolam (Xanax)1 Mg Tab1 Mg PO BID Ref 0 04/20/16 Omeprazole (Prilosec)20 Mg Cap20 Mg PO DAILY #30 CAP Ref 0 04/20/[address] (Aspirin 81)81 Mg Tabdr81 Mg PO DAILY Ref 0 04/20/16 Ferrous Sulfate 325 Mg [id number] Mg PO BID #30 TAB Ref 0 04/20/16 Citalopram (Celexa)20 Mg Tab20 Mg PO DAILY #30 TAB Ref 0 04/20/16 Valsartan 80 Mg Tab80 Mg PO DAILY #30 TAB Ref 0 04/20/16 Discontinued Reported Medications Benztropine 2 Mg Tab2 Mg PO DAILY #60 TAB Ref 0 05/02/16 Risperidone 1 Mg Tab1 Mg PO BID #30 TAB Ref 0 05/02/16 Oxycodone-Acetaminophen 5-325 mg Tab1 Tab PO TID PRN (PAIN SCALE 1 TO 10) Ref 0 04/20/16 Current Medications Medications (Trade) Dose Ordered Sig/Janett Route Start Time Stop Time Status Last Admin (Tylenol) 650 mg Q4H PRN PO 05/02/16 20:00 05/04/16 11:48 (Milk Of Magnesia Liq) 30 ml DAILY PRN PO 05/02/16 20:00 (Mag-Al Plus Susp Liq) 30 ml Q6H PRN PO 05/02/16 20:00 05/03/16 02:56 (Ativan) 0.5 mg Q12H PRN PO 05/02/16 20:30 (Ecotrin Ec) 81 mg DAILY PO 05/04/16 09:00 05/04/16 09:02 (CeleXA) 20 mg DAILY PO 05/04/16 09:00 05/04/16 09:02 (Ferrous Sulfate) 325 mg BID PO 05/03/16 21:00 05/04/16 09:02 (Protonix) 20 mg DAILY PO 05/04/16 09:00 05/04/16 09:02 (Diovan) 80 mg DAILY PO 05/04/16 09:00 05/04/16 09:00 (Macrobid) 100 mg BID PO 05/03/16 21:00 05/06/16 16:11 05/04/16 09:02 (Zofran Odt) 4 mg Q6H PRN PO 05/03/16 11:45 05/04/16 11:44 (Desyrel) 100 mg HS PO 05/03/16 21:00 05/03/16 21:11 (SEROquel) 25 mg BID@09,16 PO 05/03/16 16:00 05/04/16 09:02 (SEROquel) 50 mg HS PO 05/03/16 21:00 05/03/16 21:11 (Remeron) 15 mg HS PO 05/03/16 21:00 05/03/16 21:11 (Catapres) 0.1 mg Q6H PRN PO 05/03/16 16:15 Social History Originally from [place]. Adult daughter is involved in care. Patient's Strengths (min. 2) Patient verbal irritable axis health care Physical Exam Vital Signs Vital Signs Date Time Temp Pulse Resp B/P Pulse Ox O2 Delivery O2 Flow Rate FiO2 05/04/16 05:33 98.4 83 17 121/66 94 05/02/16 21:10 Room Air I/O 05/03/16 05/03/16 05/04/16 08:00 16:00 00:00 Intake Total 240 ml 1200 ml 1500 ml Balance 240 ml 1200 ml 1500 ml Mental Status Examination Speech: Unremarkable, Slow, Circumstantial, Tangential Orientation: x3 Memory: Unremarkable Thought Process: Linear Thought Content: Unremarkable Hallucination Type: Auditory, Visual Attention and Concentration: Other Suicidal Ideation: Yes Previous Suicide Attempts: Yes (in [place] about 10 years ago) Homicidal Ideation: No Previous Homicide Attempts: No Insight: Poor Judgement: Poor Affect: Other Mood: Sad Motor Activity: Normal gait Assessment & Plan Problem List: (1) Major depressive disorder, recurrent episode, severe, with psychosis ICD Code: F33.3 Assessment & Plan I agree that pt meets BA criteria. 2nd opinion completed. Continue current tx plan. Estimated LOS: days Request HC Surrog/Guard Advoc?: No Yaa Rowland MD May 04, 2016 15:04
[2016-05-04] MEDS: cloNIDine HCL 0.1 MG TAB PO PRN (18:29)
[2016-05-04 20:00] VITALS: BP 170/74; PULSE 72; RESP 18; TEMP 99.1
[2016-05-04] MEDS: traZODone HCL 100 MG TAB PO SCH (21:22)
[2016-05-04] MEDS: MIRTAZAPINE 15 MG TAB PO SCH (21:22)
[2016-05-04] MEDS ORDERED: BISACODYL 10 MG SUPP RECTAL ONE (22:00)
[2016-05-04] MEDS: LORazepam 0.5 MG TAB PO PRN (23:36)
[2016-05-05] MEDS: ONDANSETRON ODT 4 MG TAB PO PRN ×2 (05:01→12:25)
[2016-05-05 05:44] VITALS: BP 132/62; PULSE 74; RESP 17; TEMP 98.3; O2SAT 98
--- NOTE | 2016-05-05 08:35 | HHI.PR ---
Subjective Remarks Follow-up visit dyspepsia, nausea, HTN. Patient seen today. Reports she has some nausea gets relief from Zofran. However she still feels some heartburn occasionally. Patient was started on Protonix. Plans of constipation. Patient states she was given a suppository but still unable to go. Otherwise, denies pain and discomfort. Denies SOB/ dyspnea. Denies chest pain, palpitations, headaches, dizziness. Denies fevers, chills, dysuria, hematuria. Objective Vitals Vital Signs Date Time Temp Pulse Resp B/P Pulse Ox O2 Delivery O2 Flow Rate FiO2 05/05/16 05:44 98.3 74 17 132/62 98 05/04/16 20:00 99.1 72 18 170/74 I/O 05/04/16 05/04/16 05/04/16 05/05/16 05/05/16 05/05/16 07:00 15:00 23:00 07:00 15:00 23:00 Intake Total 180 ml 1020 ml Balance 180 ml 1020 ml Intake Oral 180 ml 1020 ml # Voids 2 1 2 Result Diagram: 05/02/16 19105/03/16 0914 Objective Remarks GENERAL: This is a obese, well-developed patient, in no apparent distress. HEENT: Normocephalic. Pupils equal round and reactive. Nose without bleeding. Airway patent. NECK: Trachea midline. No JVD. Supple. CARDIOVASCULAR: Regular rate and rhythm without murmurs, gallops, or rubs. RESPIRATORY: Clear to auscultation. Breath sounds equal bilaterally. No wheezes , rales, or rhonchi. GASTROINTESTINAL: Abdomen soft, midepigastric tenderness to palpation, nondistended. Bowel Sounds normoactive x4. MUSCULOSKELETAL: Extremities without clubbing, cyanosis, or edema. NEUROLOGICAL: Awake and alert. Oriented x 3. No focal neuro deficit. [place]. Normal speech. A/P Problem List: (1) Bipolar disorder ICD Code: F31.9 Status: Acute (2) Anxiety ICD Code: F41.9 Status: Acute (3) Major depressive disorder, recurrent episode, severe, with psychosis ICD Code: F33.3 Status: Acute (4) HTN (hypertension) ICD Code: I10 Status: Acute (5) GERD (gastroesophageal reflux disease) ICD Code: K21.9 Status: Acute (6) Constipation ICD Code: K59.00 Status: Acute Assessment and Plan This is a 70-year-old female admitted to psych unit for suicidal ideations. We were consulted for management of UTI, hypertension and other medical conditions Hypertension, uncontrolled-restart losartan, clonidine as needed. - Monitor BP trend Dyspepsia, GERD, GI upset - started on Protonix. Will add Tums when necessary - Monitor for relief. Anemia-restart ferrous sulfate Recent UTI- on Macrobid. Repeat UA negative 05/04/15. - DC Macrobid. Possible contribution to GI upset Chronic knee pain - Tylenol for now - Monitor for relief. DVT prop ambulation Discussed with patient, nursing and Dr. Goetz. Problem Qualifiers (1) Bipolar disorder: Qualified Code: F31.32 - Bipolar affective disorder, currently depressed, moderate Angel Valderrama May 05, 2016 08:35
[2016-05-05] MEDS: PANTOPRAZOLE SOD 20 MG DELAYED RELEASE TAB PO SCH (09:22)
[2016-05-05] MEDS: ASPIRIN EC 81 MG TABEC PO SCH (09:23)
[2016-05-05] MEDS: CITALOPRAM HYDROBROMIDE 20 MG TAB PO SCH (09:23)
[2016-05-05] MEDS: FERROUS SULFATE 325 MG (65 MG ELEMENTAL IRON) TAB PO SCH ×2 (09:23→21:12)
[2016-05-05] MEDS: QUEtiapine FUMARATE 25 MG TAB PO SCH ×3 (09:23→21:11)
[2016-05-05] MEDS: NITROFURANTOIN MONOHYD MACROCR 100 MG CAP PO SCH (09:23)
[2016-05-05] MEDS: VALSARTAN 80 MG TAB PO SCH (09:23)
[2016-05-05] MEDS: ACETAMINOPHEN 325 MG TAB PO PRN ×3 (10:20→21:58)
--- NOTE | 2016-05-05 15:32 | HHI.PYPN ---
Subjective Remarks Pt seen and discussed with staff. She has been out in day room more and interacting in milieu. Pt reports that mood is improving and she is feeling less depressed. SI has decreased. N medication side effects. Visited with family. Objective Alert: Yes [place]: Person, Place, Date, Situation Mood: Depressed Affect: Restricted Memory Intact: Immediate, Recent, Remote Hallucinations: Other (none) Delusions: No Delusion Type: Other (none) Suicidal: Ideation (intermittent) Homicidal: Ideation (denies) Insight/Judgement fair Vitals/IOs Vital Signs Date Time Temp Pulse Resp B/P Pulse Ox O2 Delivery O2 Flow Rate FiO2 05/05/16 05:44 98.3 74 17 132/62 98 05/02/16 21:10 Room Air Intake and Output 05/04/16 05/04/16 05/05/16 08:00 16:00 00:00 Intake Total 180 ml 660 ml Balance 180 ml 660 ml Assessment & Plan Problem List: (1) Major depressive disorder, recurrent episode, severe, with psychosis ICD Code: F33.3 Assessment & Plan Continue current tx plan. Estimated LOS: days Justification for Cont. Inpt. impairments in safety Request HC Surrog/Guard Advoc?: No Yaa Rowland MD May 05, 2016 15:31
[2016-05-05 19:59] VITALS: BP 147/80; PULSE 87; RESP 17; TEMP 97.6; O2SAT 99
[2016-05-05] MEDS ORDERED: DOCUSATE SODIUM 50 MG/SENNA 8.6 MG TAB PO SCH (21:00)
[2016-05-05] MEDS: MIRTAZAPINE 15 MG TAB PO SCH (21:11)
[2016-05-05] MEDS: traZODone HCL 100 MG TAB PO SCH (21:11)
[2016-05-06] MEDS: ONDANSETRON ODT 4 MG TAB PO PRN ×3 (04:25→20:45)
[2016-05-06] MEDS: CALCIUM CARBONATE 500 MG CHEWABLE TAB CHEW PRN ×4 (04:32→20:45)
[2016-05-06 05:18] VITALS: BP 139/64; PULSE 84; RESP 16; TEMP 98; O2SAT 97
[2016-05-06 07:54] LABS: HDL CHOLESTEROL 61.6 MG/DL (40.0-60.0); LDL CHOLESTEROL 58 MG/DL (0-99)
[2016-05-06] MEDS: QUEtiapine FUMARATE 25 MG TAB PO SCH ×3 (08:26→20:32)
[2016-05-06] MEDS: PANTOPRAZOLE SOD 20 MG DELAYED RELEASE TAB PO SCH (08:26)
[2016-05-06] MEDS: FERROUS SULFATE 325 MG (65 MG ELEMENTAL IRON) TAB PO SCH ×2 (08:26→20:32)
[2016-05-06] MEDS: VALSARTAN 80 MG TAB PO SCH (08:26)
[2016-05-06] MEDS: ASPIRIN EC 81 MG TABEC PO SCH (08:26)
[2016-05-06] MEDS: CITALOPRAM HYDROBROMIDE 20 MG TAB PO SCH (08:26)
[2016-05-06] MEDS: ACETAMINOPHEN 325 MG TAB PO PRN ×3 (08:59→18:08)
[2016-05-06 12:00] LABS: HEMOGLOBIN A1a 1.8 %; HEMOGLOBIN Ao 84.6 %; HEMOGLOBIN F 0.9 %; HEMOGLOBIN LA1C 1.9 %; HEMOGLOBIN P3 3.4 %
[2016-05-06] MEDS: DOCUSATE SODIUM 50 MG/SENNA 8.6 MG TAB PO SCH ×2 (13:00→20:33)
--- NOTE | 2016-05-06 14:50 | HHI.PYPN ---
Subjective Remarks Patient discussed with treatment team patient's sister, [id number], and daughter. Patient seen on unit, chart reviewed. Family gives is somewhat complicated family history with this patient where she has been dividing her residences between her daughter in [place], her common-law in [place] who is the father of her children, and her sister and [id number] locally along with her daughter who lives in [place]. It appears the patient always been somewhat headstrong and stubborn. Is also was a psychiatric hospitalization around 2012 for what appears to be a depressive type problem. She is also been followed by various mental health workers involved 3 locations. Patient somewhat calmer today seen sitting in day room calm pleasant with good eye contact interacting with other female patients, compliant medications she does denies suicidality homicidality or voices. For now continue treatment Review of Systems Except as stated in HPI: all other systems reviewed are Neg Objective Alert: Yes [place]: Person, Place, Date, Situation Mood: Depressed Affect: Restricted Memory Intact: Immediate, Recent, Remote Hallucinations: Other (none) Delusions: No Delusion Type: Other (none) Suicidal: Ideation (intermittent) Homicidal: Ideation (denies) Insight/Judgement Poor Labs Test 05/06/16 06:41 Hemoglobin A1c 5.9 % Triglycerides Level 54 MG/DL Cholesterol Level 130 MG/DL LDL Cholesterol 58 MG/DL HDL Cholesterol 61.6 MG/DL Cholesterol/HDL Ratio 2.11 RATIO Vitals/IOs Vital Signs Date Time Temp Pulse Resp B/P Pulse Ox O2 Delivery O2 Flow Rate FiO2 05/06/16 05:18 98.0 84 16 139/64 97 05/02/16 21:10 Room Air Intake and Output 05/05/16 05/05/16 05/06/16 08:00 16:00 00:00 Intake Total 360 ml 1020 ml 720 ml Balance 360 ml 1020 ml 720 ml Assessment & Plan Problem List: (1) Major depressive disorder, recurrent episode, severe, with psychosis ICD Code: F33.3 Assessment & Plan Estimated LOS: days patient continues depressed though somewhat improving, compliant medications. For now continue treatment Justification for Cont. Inpt. At this time the patient would significantly decompensate if placed at a lower level of care Discharge Planning To be determined Request HC Surrog/Guard Advoc?: No Ronak Klein MD May 06, 2016 14:50
[2016-05-06 18:00] VITALS: BP 189/97; PULSE 84; RESP 17; TEMP 98.5; O2SAT 97
[2016-05-06 18:50] VITALS: BP 161/72; PULSE 79
[2016-05-06] MEDS: MIRTAZAPINE 15 MG TAB PO SCH (20:32)
[2016-05-06] MEDS: cloNIDine HCL 0.1 MG TAB PO PRN (20:32)
[2016-05-06] MEDS: traZODone HCL 100 MG TAB PO SCH (20:33)
[2016-05-07] MEDS: ONDANSETRON ODT 4 MG TAB PO PRN ×2 (04:02→08:41)
[2016-05-07 05:05] VITALS: BP 148/68; PULSE 71; RESP 18; TEMP 98.9; O2SAT 95
[2016-05-07] MEDS: CALCIUM CARBONATE 500 MG CHEWABLE TAB CHEW PRN ×2 (08:40→16:37)
[2016-05-07] MEDS: PANTOPRAZOLE SOD 20 MG DELAYED RELEASE TAB PO SCH (08:41)
[2016-05-07] MEDS: QUEtiapine FUMARATE 25 MG TAB PO SCH ×4 (08:41→21:51)
[2016-05-07] MEDS: VALSARTAN 80 MG TAB PO SCH (08:41)
[2016-05-07] MEDS: ASPIRIN EC 81 MG TABEC PO SCH (08:41)
[2016-05-07] MEDS: DOCUSATE SODIUM 50 MG/SENNA 8.6 MG TAB PO SCH ×2 (08:41→21:50)
[2016-05-07] MEDS: CITALOPRAM HYDROBROMIDE 20 MG TAB PO SCH (08:41)
[2016-05-07] MEDS: FERROUS SULFATE 325 MG (65 MG ELEMENTAL IRON) TAB PO SCH ×2 (08:41→21:51)
[2016-05-07] MEDS: ACETAMINOPHEN 325 MG TAB PO PRN ×3 (08:42→16:37)
--- NOTE | 2016-05-07 10:30 | HHI.PR ---
Subjective Remarks Follow-up visit dyspepsia, nausea, HTN. Patient seen today. Reports she has some nausea gets relief from Zofran. However she still feels some heartburn occasionally. Patient was started on Protonix. Reports constipation has resolved. reports headache earlier today resolved after acetaminophen. Denies SOB/ dyspnea. Denies chest pain, palpitations, dizziness. Denies fevers, chills , dysuria, hematuria. Objective Vitals Vital Signs Date Time Temp Pulse Resp B/P Pulse Ox O2 Delivery O2 Flow Rate FiO2 05/07/16 05:05 98.9 71 18 148/68 95 05/06/16 18:50 79 161/72 05/06/16 18:00 98.5 84 17 189/97 97 I/O 05/06/16 05/06/16 05/06/16 05/07/16 05/07/16 05/07/16 07:00 15:00 23:00 07:00 15:00 23:00 Intake Total 0 ml 2880 ml 0 ml Balance 0 ml 2880 ml 0 ml Intake Oral 0 ml 2880 ml 0 ml # Voids 2 4 2 # Bowel Movements 0 Result Diagram: 05/03/16 0914 Objective Remarks GENERAL: This is a obese, well-developed patient, in no apparent distress. HEENT: Normocephalic. EOMI. Nose without bleeding. Airway patent. NECK: Trachea midline. No JVD. Supple. CARDIOVASCULAR: Regular rate and rhythm without murmurs, gallops, or rubs. RESPIRATORY: Clear to auscultation. Breath sounds equal bilaterally. No wheezes , rales, or rhonchi. GASTROINTESTINAL: Abdomen soft, midepigastric tenderness to palpation, nondistended. Bowel Sounds normoactive x4. MUSCULOSKELETAL: Extremities without clubbing, cyanosis, or edema. NEUROLOGICAL: Awake and alert. Oriented x 3. No focal neuro deficit. [place]. Normal speech. A/P Problem List: (1) Bipolar disorder ICD Code: F31.9 Status: Acute (2) Anxiety ICD Code: F41.9 Status: Acute (3) Major depressive disorder, recurrent episode, severe, with psychosis ICD Code: F33.3 Status: Acute (4) HTN (hypertension) ICD Code: I10 Status: Acute (5) GERD (gastroesophageal reflux disease) ICD Code: K21.9 Status: Acute (6) Constipation ICD Code: K59.00 Status: Acute Assessment and Plan This is a 70-year-old female admitted to psych unit for suicidal ideations. We were consulted for management of UTI, hypertension and other medical conditions Hypertension -continue losartan increased dose to 160 mg daily clonidine as needed. - Monitor BP trend Dyspepsia, GERD, GI upset - continue Tums when necessary- increase Protonix to 40 mg daily - Monitor for relief. Nausea Improved with Zofran, continue Zofran as needed Anemia- continue ferrous sulfate Recent UTI- recently completed Macrobid - DC Macrobid. Possible contribution to GI upset Chronic knee pain - Tylenol for now - Monitor for relief. Headache- continue Tylenol when necessary DVT prop ambulation Recheck CBC today Discussed with patient, nursing and Dr. Mendez. Problem Qualifiers (1) Bipolar disorder: Qualified Code: F31.32 - Bipolar affective disorder, currently depressed, moderate Ariana Doran May 07, 2016 10:30 Ariana Doran May 07, 2016 10:30
--- NOTE | 2016-05-07 11:20 | HHI.PYPN ---
Subjective Remarks Patient seen today in day room with nurse Vickie and counselor Rossi, patient continues to complain of intermittent nausea, and anxiety. It appears she is tolerating her food well though at time she states she "gags" on it. However her appearances calm and appropriate she was sitting with other patients having a good conversation. Will increase scheduled daily Seroquel to 25 mg 8 AM noon and 4 PM continue at bedtime dose no change Review of Systems Except as stated in HPI: all other systems reviewed are Neg Objective Alert: Yes [place]: Person, Place, Date, Situation Mood: Depressed Affect: Restricted Memory Intact: Immediate, Recent, Remote Hallucinations: Other (none) Delusions: No Delusion Type: Other (none) Suicidal: Ideation (intermittent) Homicidal: Ideation (denies) Insight/Judgement Poor Vitals/IOs Vital Signs Date Time Temp Pulse Resp B/P Pulse Ox O2 Delivery O2 Flow Rate FiO2 05/07/16 05:05 98.9 71 18 148/68 95 Intake and Output 05/06/16 05/06/16 05/07/16 08:00 16:00 00:00 Intake Total 0 ml 2880 ml Balance 0 ml 2880 ml Assessment & Plan Problem List: (1) Major depressive disorder, recurrent episode, severe, with psychosis ICD Code: F33.3 Assessment & Plan Estimated LOS: days patient continues somewhat anxious and med seeking, though her demeanor is calm and appropriate she is visiting with other patients in the day room. See medication adjustment above Justification for Cont. Inpt. At this time patient will decompensate placed on the lower level of care Discharge Planning To be determined Request HC Surrog/Guard Advoc?: No Ronak Klein MD May 07, 2016 11:20
[2016-05-07 12:32] LABS: BASOPHIL # 0.1 TH/MM3 (0-0.2); BASOPHIL % 0.9 % (0.0-2.0); EOSINOPHIL # 0.1 TH/MM3 (0-0.4); EOSINOPHIL % 1.6 % (0.0-4.0); HEMATOCRIT 32.1 % (35.0-46.0); HEMO FLAGS DIFF FINAL; LYMPHOCYTE # 1.4 TH/MM3 (1.0-4.8); MEAN CELL VOLUME 92.1 FL (80.0-100.0); MEAN CORPUSCULAR HEMOGLOBIN 31.3 PG (27.0-34.0); MONO % 6.4 % (0.0-8.0); NEUT % 71.1 % (16.0-70.0); PLATELET COUNT 350 TH/MM3 (150-450); RED BLOOD COUNT 3.49 MIL/MM3 (4.00-5.30); WHITE BLOOD COUNT 7.1 TH/MM3 (4.0-11.0)
[2016-05-07] MEDS: cloNIDine HCL 0.1 MG TAB PO PRN (16:36)
[2016-05-07 20:12] VITALS: BP 171/98; PULSE 77; RESP 18; TEMP 98.2; O2SAT 96
[2016-05-07] MEDS: MIRTAZAPINE 15 MG TAB PO SCH (21:50)
[2016-05-07] MEDS: traZODone HCL 100 MG TAB PO SCH (21:51)
[2016-05-07] MEDS: PROCHLORPERAZINE MALEATE 10 MG TAB PO PRN (23:14)
[2016-05-08] MEDS: ACETAMINOPHEN 325 MG TAB PO PRN ×3 (05:34→22:23)
[2016-05-08] MEDS: PROCHLORPERAZINE MALEATE 10 MG TAB PO PRN ×2 (05:34→10:59)
[2016-05-08 06:11] VITALS: BP 154/74; PULSE 81; RESP 18; TEMP 98.7; O2SAT 97
--- NOTE | 2016-05-08 10:29 | HHI.PYPN ---
Subjective Remarks Patient seen in her room with floor staff, patient in bed covers to her chin, and towel over her head. Patient compliant medications. Calm and pleasant with me some decreased focus on her nausea. When speaking about her surname she says she was part of the [employer] family but left out of any of its businesses or money. Review of Systems Except as stated in HPI: all other systems reviewed are Neg Objective Alert: Yes [place]: Person, Place, Date, Situation Mood: Depressed Affect: Restricted Memory Intact: Immediate, Recent, Remote Hallucinations: Other (none) Delusions: No Delusion Type: Other (none) Suicidal: Ideation (intermittent) Homicidal: Ideation (denies) Insight/Judgement Very poor Labs Test 05/07/16 12:19 White Blood Count 7.1 TH/MM3 Red Blood Count 3.49 MIL/MM3 Hemoglobin 10.9 GM/DL Hematocrit 32.1 % Mean Corpuscular Volume 92.1 FL Mean Corpuscular Hemoglobin 31.3 PG Mean Corpuscular Hemoglobin 34.0 % Concent Red Cell Distribution Width 16.0 % Platelet Count 350 TH/MM3 Mean Platelet Volume 7.1 FL Neutrophils (%) (Auto) 71.1 % Lymphocytes (%) (Auto) 20.0 % Monocytes (%) (Auto) 6.4 % Eosinophils (%) (Auto) 1.6 % Basophils (%) (Auto) 0.9 % Neutrophils # (Auto) 5.0 TH/MM3 Lymphocytes # (Auto) 1.4 TH/MM3 Monocytes # (Auto) 0.5 TH/MM3 Eosinophils # (Auto) 0.1 TH/MM3 Basophils # (Auto) 0.1 TH/MM3 CBC Comment DIFF FINAL Differential Comment Vitals/IOs Vital Signs Date Time Temp Pulse Resp B/P Pulse Ox O2 Delivery O2 Flow Rate FiO2 05/08/16 06:11 98.7 81 18 154/74 97 Intake and Output 05/07/16 05/07/16 05/08/16 08:00 16:00 00:00 Intake Total 0 ml 2160 ml 1080 ml Balance 0 ml 2160 ml 1080 ml Assessment & Plan Problem List: (1) Major depressive disorder, recurrent episode, severe, with psychosis ICD Code: F33.3 Assessment & Plan Estimated LOS: days patient depression slightly softer though psychotic features persist with some delusional ideation Justification for Cont. Inpt. At this time patient would significantly decompensated if placed on a lower level of care Discharge Planning To be determined Request HC Surrog/Guard Advoc?: No Ronak Klein MD May 08, 2016 10:29
[2016-05-08] MEDS: PANTOPRAZOLE SOD 40 MG DELAYED RELEASE TAB PO SCH (10:53)
[2016-05-08] MEDS: QUEtiapine FUMARATE 25 MG TAB PO SCH ×4 (10:53→21:18)
[2016-05-08] MEDS: CITALOPRAM HYDROBROMIDE 20 MG TAB PO SCH (10:53)
[2016-05-08] MEDS: DOCUSATE SODIUM 50 MG/SENNA 8.6 MG TAB PO SCH ×2 (10:53→21:18)
[2016-05-08] MEDS: FERROUS SULFATE 325 MG (65 MG ELEMENTAL IRON) TAB PO SCH ×2 (10:53→21:18)
[2016-05-08] MEDS: ASPIRIN EC 81 MG TABEC PO SCH (10:53)
[2016-05-08] MEDS: VALSARTAN 160 MG TAB PO SCH (10:53)
[2016-05-08] MEDS: CALCIUM CARBONATE 500 MG CHEWABLE TAB CHEW PRN (15:59)
[2016-05-08] MEDS: traZODone HCL 100 MG TAB PO SCH (21:18)
[2016-05-08] MEDS: MIRTAZAPINE 15 MG TAB PO SCH (21:18)
[2016-05-08 23:13] VITALS: BP 144/83; PULSE 82; RESP 18; TEMP 97.4; O2SAT 98
[2016-05-09] MEDS: PROCHLORPERAZINE MALEATE 10 MG TAB PO PRN (02:25)
[2016-05-09] MEDS: LORazepam 0.5 MG TAB PO PRN (02:26)
[2016-05-09 06:47] VITALS: BP 156/72; PULSE 68; RESP 20; TEMP 98.3; O2SAT 97
[2016-05-09] MEDS: CITALOPRAM HYDROBROMIDE 20 MG TAB PO SCH (09:31)
[2016-05-09] MEDS: QUEtiapine FUMARATE 25 MG TAB PO SCH ×4 (09:31→21:11)
[2016-05-09] MEDS: ASPIRIN EC 81 MG TABEC PO SCH (09:31)
[2016-05-09] MEDS: VALSARTAN 160 MG TAB PO SCH (09:31)
[2016-05-09] MEDS: DOCUSATE SODIUM 50 MG/SENNA 8.6 MG TAB PO SCH ×2 (09:32→21:11)
[2016-05-09] MEDS: PANTOPRAZOLE SOD 40 MG DELAYED RELEASE TAB PO SCH (09:32)
[2016-05-09] MEDS: FERROUS SULFATE 325 MG (65 MG ELEMENTAL IRON) TAB PO SCH ×2 (09:32→21:11)
[2016-05-09] MEDS: CALCIUM CARBONATE 500 MG CHEWABLE TAB CHEW PRN ×3 (11:12→18:08)
[2016-05-09] MEDS: ACETAMINOPHEN 325 MG TAB PO PRN ×3 (11:12→22:48)
--- NOTE | 2016-05-09 11:51 | HHI.PYPN ---
Subjective Remarks Patient seen in her room with nurse Amarilis, quite pleasant happy with me with good eye contact, though she has multiple complaints but persisted vague nausea, also now some sleep problems related to her noisy roommate. Requesting Benadryl for that, requesting change from Compazine to Phenergan. We will not add another medication at bedtime since she is already on Remeron Seroquel and trazodone but we will increase the trazodone to 150 mg at bedtime. Will with medical service discuss antinausea medication with patient. Patient denies suicidality homicidality voices or visions at this time. Though it appears there is some subtle drug-seeking noted with her Review of Systems Except as stated in HPI: all other systems reviewed are Neg Objective Alert: Yes [place]: Person, Place, Date, Situation Mood: Depressed Affect: Restricted Memory Intact: Immediate, Recent, Remote Hallucinations: Other (none) Delusions: No Delusion Type: Other (none) Suicidal: Ideation (intermittent) Homicidal: Ideation (denies) Insight/Judgement Poor Vitals/IOs Vital Signs Date Time Temp Pulse Resp B/P Pulse Ox O2 Delivery O2 Flow Rate FiO2 05/09/16 06:47 98.3 68 20 156/72 97 Intake and Output 05/08/16 05/08/16 05/09/16 08:00 16:00 00:00 Intake Total 240 ml Balance 240 ml Assessment & Plan Problem List: (1) Major depressive disorder, recurrent episode, severe, with psychosis ICD Code: F33.3 Assessment & Plan Estimated LOS: days patient overall somewhat improved, above the remain some subtle drug-seeking especially related her somatic issues and now too sleep disturbances. Will refrain from polypharmacy and increase the trazodone to 150 mg allow the medical service to address her continued complaints of nausea Justification for Cont. Inpt. At this time patient will decompensate if placed in a lower level of care Discharge Planning To be determined Request HC Surrog/Guard Advoc?: No Ronak Klein MD May 09, 2016 11:51
[2016-05-09] MEDS ORDERED: [UNRECOGNIZED DRUG - OTHER] DENTAL PRN (12:15)
--- NOTE | 2016-05-09 16:27 | HHI.PR ---
Subjective Remarks Follow-up visit dyspepsia, nausea, HTN. Patient seen today sitting in day room eating a popsicle in no acute distress. Reports she has some nausea gets relief from Zofran. Patient tried Compazine but did not get relief from nausea. No further complaints of heartburn/GERD. Denies SOB/ dyspnea. Denies chest pain, palpitations, dizziness. Denies fevers, chills, dysuria, hematuria. Objective Vitals Vital Signs Date Time Temp Pulse Resp B/P Pulse Ox O2 Delivery O2 Flow Rate FiO2 05/09/16 06:47 98.3 68 20 156/72 97 05/08/16 23:13 97.4 82 18 144/83 98 I/O 05/08/16 05/08/16 05/08/16 05/09/16 05/09/16 05/09/16 07:00 15:00 23:00 07:00 15:00 23:00 Intake Total 240 ml 1560 ml Output Total 1 ml Balance 239 ml 1560 ml Intake Oral 240 ml 1560 ml Output Stool Total 1 ml # Voids 2 4 1 # Bowel Movements 0 Result Diagram: 05/07/16 1219 Objective Remarks GENERAL: This is a obese, well-developed patient, in no apparent distress. HEENT: Normocephalic. EOMI. Nose without bleeding. Airway patent. NECK: Trachea midline. No JVD. Supple. CARDIOVASCULAR: Regular rate and rhythm without murmurs, gallops, or rubs. RESPIRATORY: Clear to auscultation. Breath sounds equal bilaterally. No wheezes , rales, or rhonchi. GASTROINTESTINAL: Abdomen soft, midepigastric tenderness to palpation, nondistended. Bowel Sounds normoactive x4. MUSCULOSKELETAL: Extremities without clubbing, cyanosis, or edema. NEUROLOGICAL: Awake and alert. Oriented x 3. No focal neuro deficit. [place]. Normal speech. A/P Problem List: (1) Bipolar disorder ICD Code: F31.9 Status: Acute (2) Anxiety ICD Code: F41.9 Status: Acute (3) Major depressive disorder, recurrent episode, severe, with psychosis ICD Code: F33.3 Status: Acute (4) HTN (hypertension) ICD Code: I10 Status: Acute (5) GERD (gastroesophageal reflux disease) ICD Code: K21.9 Status: Acute (6) Constipation ICD Code: K59.00 Status: Acute Assessment and Plan This is a 70-year-old female admitted to psych unit for suicidal ideations. We were consulted for management of UTI, hypertension and other medical conditions Hypertension- -continue losartan 160 mg daily clonidine as needed. - Monitor BP trend Dyspepsia, GERD, GI upset - continue Tums when necessary- increase Protonix to 40 mg daily - Monitor for relief. Nausea Improved with Zofran, continue Zofran as needed And Phenergan as needed Anemia- continue ferrous sulfate Recent UTI- recently completed Macrobid - DC Macrobid. Possible contribution to GI upset Chronic knee pain - Tylenol for now - Monitor for relief. Headache- continue Tylenol when necessary DVT prop ambulation Discussed with patient, nursing Patient appears medically stable will sign off if patient's condition changes or if further assistance is needed please reconsult Written by Ariana Doran, acting as scribe for Dr. Mendez on 05/09/16 at 15 :27. The documentation accurately reflects the work performed [id number] by me on at 15:27. Problem Qualifiers (1) Bipolar disorder: Qualified Code: F31.32 - Bipolar affective disorder, currently depressed, moderate Ariana Doran May 09, 2016 16:27 Manjinder Mendez DO May 09, 2016 18:32
[2016-05-09] MEDS: MIRTAZAPINE 15 MG TAB PO SCH (21:11)
[2016-05-09] MEDS: traZODone HCL 50 MG TAB PO SCH (21:11)
[2016-05-09] MEDS: ONDANSETRON ODT 4 MG TAB PO PRN (22:48)
[2016-05-10 05:04] VITALS: BP 140/82; PULSE 87; RESP 16; TEMP 97.8
[2016-05-10] MEDS: ONDANSETRON ODT 4 MG TAB PO PRN (05:53)
[2016-05-10] MEDS: ACETAMINOPHEN 325 MG TAB PO PRN ×3 (05:54→22:33)
[2016-05-10] MEDS: CITALOPRAM HYDROBROMIDE 20 MG TAB PO SCH (09:04)
[2016-05-10] MEDS: DOCUSATE SODIUM 50 MG/SENNA 8.6 MG TAB PO SCH ×2 (09:04→20:19)
[2016-05-10] MEDS: ASPIRIN EC 81 MG TABEC PO SCH (09:04)
[2016-05-10] MEDS: VALSARTAN 160 MG TAB PO SCH (09:05)
[2016-05-10] MEDS: FERROUS SULFATE 325 MG (65 MG ELEMENTAL IRON) TAB PO SCH ×2 (09:05→20:48)
[2016-05-10] MEDS: PANTOPRAZOLE SOD 40 MG DELAYED RELEASE TAB PO SCH (09:05)
[2016-05-10] MEDS: QUEtiapine FUMARATE 25 MG TAB PO SCH ×4 (09:05→20:19)
[2016-05-10] MEDS: PROMETHAZINE HCL 25 MG TAB PO PRN (12:40)
--- NOTE | 2016-05-10 13:48 | HHI.PYPN ---
Subjective Remarks Patient seen in her room with nurse Sheela, chart reviewed, patient overall calm pleasant cooperative denying suicidality. Still some focusing on her nausea but somewhat less intense she now has Phenergan also ordered as a when necessary we'll observe for responses over the weekend. We did ask that she invite her family to the treatment team on 05/13 Review of Systems Except as stated in HPI: all other systems reviewed are Neg Objective Alert: Yes [place]: Person, Place, Date, Situation Mood: Depressed Affect: Restricted Memory Intact: Immediate, Recent, Remote Hallucinations: Other (none) Delusions: No Delusion Type: Other (none) Suicidal: Ideation (intermittent) Homicidal: Ideation (denies) Insight/Judgement Poor Vitals/IOs Vital Signs Date Time Temp Pulse Resp B/P Pulse Ox O2 Delivery O2 Flow Rate FiO2 05/10/16 05:04 97.8 87 16 140/82 05/09/16 06:47 97 Intake and Output 05/09/16 05/09/16 05/10/16 08:00 16:00 00:00 Intake Total 1560 ml 360 ml Output Total 1 ml Balance -1 ml 1560 ml 360 ml Assessment & Plan Problem List: (1) Major depressive disorder, recurrent episode, severe, with psychosis ICD Code: F33.3 Assessment & Plan Estimated LOS: days patient calm mood appears to be softening, denies suicidality, though still complains of some vague amorphous nausea Justification for Cont. Inpt. At this time the patient will decompensate if placed in the lower level of care Discharge Planning To be determined Request HC Surrog/Guard Advoc?: No Ronak Klein MD May 10, 2016 13:48
[2016-05-10 18:51] VITALS: BP 158/76; PULSE 85; RESP 17; TEMP 99; O2SAT 97
[2016-05-10] MEDS: MIRTAZAPINE 15 MG TAB PO SCH (20:19)
[2016-05-10] MEDS: traZODone HCL 50 MG TAB PO SCH (20:19)
[2016-05-10] MEDS: CALCIUM CARBONATE 500 MG CHEWABLE TAB CHEW PRN (20:48)
[2016-05-10] MEDS: LORazepam 0.5 MG TAB PO PRN (23:13)
[2016-05-11] MEDS: ONDANSETRON ODT 4 MG TAB PO PRN (01:26)
[2016-05-11] MEDS: CALCIUM CARBONATE 500 MG CHEWABLE TAB CHEW PRN (04:44)
[2016-05-11] MEDS: PROMETHAZINE HCL 25 MG TAB PO PRN ×2 (04:44→10:53)
[2016-05-11 06:17] VITALS: BP 159/73; PULSE 80; RESP 16; TEMP 98.6
[2016-05-11] MEDS: VALSARTAN 160 MG TAB PO SCH (08:51)
[2016-05-11] MEDS: DOCUSATE SODIUM 50 MG/SENNA 8.6 MG TAB PO SCH ×2 (08:51→20:25)
[2016-05-11] MEDS: QUEtiapine FUMARATE 25 MG TAB PO SCH ×4 (08:51→20:25)
[2016-05-11] MEDS: ASPIRIN EC 81 MG TABEC PO SCH (08:51)
[2016-05-11] MEDS: PANTOPRAZOLE SOD 40 MG DELAYED RELEASE TAB PO SCH (08:51)
[2016-05-11] MEDS: CITALOPRAM HYDROBROMIDE 20 MG TAB PO SCH (08:51)
[2016-05-11] MEDS: FERROUS SULFATE 325 MG (65 MG ELEMENTAL IRON) TAB PO SCH ×2 (08:51→20:24)
[2016-05-11] MEDS: ACETAMINOPHEN 325 MG TAB PO PRN ×2 (09:06→18:11)
--- NOTE | 2016-05-11 14:44 | HHI.PYPN ---
Subjective Remarks Patient was seen and case discussed with nursing. Patient is pleasant and cooperative with exam. Mood has improved. However, patient endorses fleeting suicidal thoughts. She is social with other patients and they are discussing her life stories. Complaining of poor sleep waking up every hour. Compliant with medications Objective Alert: Yes [place]: Person, Place, Date, Situation Mood: Depressed Affect: Restricted Memory Intact: Immediate, Recent, Remote Hallucinations: Other (none) Delusions: No Delusion Type: Other (none) Suicidal: Ideation (intermittent) Homicidal: Ideation (denies) Insight/Judgement Poor Vitals/IOs Vital Signs Date Time Temp Pulse Resp B/P Pulse Ox O2 Delivery O2 Flow Rate FiO2 05/11/16 06:17 98.6 80 16 159/73 05/10/16 18:51 97 Assessment & Plan Problem List: (1) Major depressive disorder, recurrent episode, severe, with psychosis ICD Code: F33.3 Assessment & Plan We will not increase trazodone for insomnia given she is on multiple QT prolonging agents. We will DC trazodone and increase Remeron to 30 mg and Benadryl 50 mg daily at bedtime Justification for Cont. Inpt. Patient will decompensate a less restrictive environment Request HC Surrog/Guard Advoc?: No Jerome Florence DO May 11, 2016 14:44
[2016-05-11 16:12] VITALS: BP 169/96
[2016-05-11] MEDS: cloNIDine HCL 0.1 MG TAB PO PRN (16:13)
[2016-05-11 18:41] VITALS: BP 169/96; PULSE 84; RESP 16; TEMP 98.8; O2SAT 99
[2016-05-11] MEDS: MIRTAZAPINE 15 MG TAB PO SCH (20:25)
[2016-05-11] MEDS: diphenhydrAMINE HCL 50 MG CAP PO SCH (20:25)
[2016-05-12] MEDS: PROMETHAZINE HCL 25 MG TAB PO PRN ×3 (00:43→14:57)
[2016-05-12] MEDS: LORazepam 0.5 MG TAB PO PRN (00:43)
[2016-05-12] MEDS: CALCIUM CARBONATE 500 MG CHEWABLE TAB CHEW PRN (04:51)
[2016-05-12 06:28] VITALS: BP 125/73; PULSE 84; RESP 18; TEMP 98.9; O2SAT 96
[2016-05-12] MEDS: QUEtiapine FUMARATE 25 MG TAB PO SCH ×3 (08:52→16:00)
[2016-05-12] MEDS: DOCUSATE SODIUM 50 MG/SENNA 8.6 MG TAB PO SCH ×2 (08:52→20:38)
[2016-05-12] MEDS: FERROUS SULFATE 325 MG (65 MG ELEMENTAL IRON) TAB PO SCH ×2 (08:52→20:39)
[2016-05-12] MEDS: CITALOPRAM HYDROBROMIDE 20 MG TAB PO SCH (08:52)
[2016-05-12] MEDS: PANTOPRAZOLE SOD 40 MG DELAYED RELEASE TAB PO SCH (08:52)
[2016-05-12] MEDS: VALSARTAN 160 MG TAB PO SCH (08:52)
[2016-05-12] MEDS: ASPIRIN EC 81 MG TABEC PO SCH (08:52)
[2016-05-12] MEDS: ACETAMINOPHEN 325 MG TAB PO PRN (09:26)
--- NOTE | 2016-05-12 15:33 | HHI.PYPN ---
Subjective Remarks Patient was seen and case discussed with nursing. Patient describes her mood today is "anxious." Patient's mood is elevated she is giving complements to myself and nursing. Says she is not sleeping well. Denies auditory visual hallucinations. Denies suicidal ideation intent or plan. Objective Alert: Yes [place]: Person, Place, Date, Situation Mood: Depressed Affect: Restricted Memory Intact: Immediate, Recent, Remote Hallucinations: Other (none) Delusions: No Delusion Type: Other (none) Suicidal: Ideation (intermittent) Homicidal: Ideation (denies) Insight/Judgement Poor Vitals/IOs Vital Signs Date Time Temp Pulse Resp B/P Pulse Ox O2 Delivery O2 Flow Rate FiO2 05/12/16 06:28 98.9 84 18 125/73 96 Assessment & Plan Problem List: (1) Major depressive disorder, recurrent episode, severe, with psychosis ICD Code: F33.3 Assessment & Plan Increase Seroquel 100 mg daily at bedtime Justification for Cont. Inpt. Patient will decompensate in a less restrictive setting Request HC Surrog/Guard Advoc?: No Jerome Florence DO May 12, 2016 15:33
[2016-05-12 18:59] VITALS: BP 148/85; PULSE 88; RESP 18; TEMP 99.4; O2SAT 98
[2016-05-12] MEDS: QUEtiapine FUMARATE 100 MG TAB PO SCH (20:38)
[2016-05-12] MEDS: MIRTAZAPINE 15 MG TAB PO SCH (20:38)
[2016-05-12] MEDS: diphenhydrAMINE HCL 50 MG CAP PO SCH (20:39)
[2016-05-13] MEDS: PROMETHAZINE HCL 25 MG TAB PO PRN ×3 (00:31→18:41)
[2016-05-13] MEDS: LORazepam 0.5 MG TAB PO PRN ×2 (00:31→22:12)
[2016-05-13] MEDS: ACETAMINOPHEN 325 MG TAB PO PRN ×2 (03:48→10:14)
[2016-05-13] MEDS: CALCIUM CARBONATE 500 MG CHEWABLE TAB CHEW PRN ×2 (03:48→20:31)
[2016-05-13 05:13] VITALS: BP 115/63; PULSE 98; RESP 15; TEMP 98.8; O2SAT 96
[2016-05-13] MEDS: PANTOPRAZOLE SOD 40 MG DELAYED RELEASE TAB PO SCH (08:48)
[2016-05-13] MEDS: DOCUSATE SODIUM 50 MG/SENNA 8.6 MG TAB PO SCH ×2 (08:48→20:30)
[2016-05-13] MEDS: FERROUS SULFATE 325 MG (65 MG ELEMENTAL IRON) TAB PO SCH ×2 (08:48→20:30)
[2016-05-13] MEDS: QUEtiapine FUMARATE 25 MG TAB PO SCH ×3 (08:48→15:45)
[2016-05-13] MEDS: VALSARTAN 160 MG TAB PO SCH (08:48)
[2016-05-13] MEDS: CITALOPRAM HYDROBROMIDE 20 MG TAB PO SCH (08:48)
[2016-05-13] MEDS: ASPIRIN EC 81 MG TABEC PO SCH (08:48)
--- NOTE | 2016-05-13 15:11 | HHI.PYPN ---
Subjective Remarks Patient discussed with treatment team patient's sister and [id number]. Patient subsequently seen in day room. Patient calm cooperative now denying suicidality homicidality voices or visions. She stating her abdominal discomfort is also softening. Patient compliant medication. At times though still somewhat suddenly seeking more pain medication sleep medication etc. The patient able to accept "no" without problems. The present time we'll consider discharge tomorrow to her family Review of Systems Except as stated in HPI: all other systems reviewed are Neg Objective Alert: Yes [place]: Person, Place, Date, Situation Mood: Depressed Affect: Restricted Memory Intact: Immediate, Recent, Remote Hallucinations: Other (none) Delusions: No Delusion Type: Other (none) Suicidal: Ideation (intermittent) Homicidal: Ideation (denies) Insight/Judgement Poor Vitals/IOs Vital Signs Date Time Temp Pulse Resp B/P Pulse Ox O2 Delivery O2 Flow Rate FiO2 05/13/16 05:13 98.8 98 15 115/63 96 Intake and Output 05/12/16 05/12/16 05/13/16 08:00 16:00 00:00 Intake Total 360 ml Balance 360 ml Assessment & Plan Problem List: (1) Major depressive disorder, recurrent episode, severe, with psychosis ICD Code: F33.3 Assessment & Plan Estimated LOS: days patient continues to improve, now denies suicidality homicidality voices or visions. Compliant medications. Consider discharge tomorrow Justification for Cont. Inpt. Patient will be consider for discharge tomorrow once all placement arrangements are made Discharge Planning To be determined Request HC Surrog/Guard Advoc?: No Ronak Klein MD May 13, 2016 15:11
[2016-05-13 19:43] VITALS: BP 169/80; PULSE 81; RESP 18; TEMP 99.4; O2SAT 97
[2016-05-13] MEDS: MIRTAZAPINE 15 MG TAB PO SCH (20:31)
[2016-05-13] MEDS: diphenhydrAMINE HCL 50 MG CAP PO SCH (20:31)
[2016-05-13] MEDS: QUEtiapine FUMARATE 100 MG TAB PO SCH (20:31)
[2016-05-13] MEDS: cloNIDine HCL 0.1 MG TAB PO PRN (22:17)
[2016-05-14 00:10] VITALS: BP 143/93; PULSE 93
[2016-05-14] MEDS: PROMETHAZINE HCL 25 MG TAB PO PRN ×2 (00:54→08:45)
[2016-05-14] MEDS: ACETAMINOPHEN 325 MG TAB PO PRN ×2 (02:05→06:47)
[2016-05-14 05:50] VITALS: BP 161/72; PULSE 86; RESP 18; TEMP 98
[2016-05-14] MEDS: cloNIDine HCL 0.1 MG TAB PO PRN (06:19)
[2016-05-14] MEDS: CALCIUM CARBONATE 500 MG CHEWABLE TAB CHEW PRN ×2 (06:20→08:45)
[2016-05-14] MEDS: VALSARTAN 160 MG TAB PO SCH (08:44)
[2016-05-14] MEDS: FERROUS SULFATE 325 MG (65 MG ELEMENTAL IRON) TAB PO SCH (08:45)
[2016-05-14] MEDS: QUEtiapine FUMARATE 25 MG TAB PO SCH ×2 (08:45→12:17)
[2016-05-14] MEDS: PANTOPRAZOLE SOD 40 MG DELAYED RELEASE TAB PO SCH (08:45)
[2016-05-14] MEDS: DOCUSATE SODIUM 50 MG/SENNA 8.6 MG TAB PO SCH (08:45)
[2016-05-14] MEDS: CITALOPRAM HYDROBROMIDE 20 MG TAB PO SCH (08:45)
[2016-05-14] MEDS: ASPIRIN EC 81 MG TABEC PO SCH (08:45)
[2016-05-14 09:00] VITALS: BP 155/119; PULSE 82
[2016-05-14] MEDS ORDERED: REME30TA PO (10:30)
[2016-05-14] MEDS ORDERED: ONDA4TAB7 PO (10:30)
[2016-05-14] MEDS ORDERED: SERO25TA PO (10:30)
[2016-05-14] MEDS ORDERED: QUET1TAB8 PO (10:30)
[2016-05-14] MEDS ORDERED: CELE20TA PO (10:30)
[2016-05-14] MEDS ORDERED: ASPI81TA11 PO (10:30)
[2016-05-14] MEDS ORDERED: CALC500C16 CHEW (10:30)
[2016-05-14] MEDS ORDERED: PANT40TA3 PO (10:30)
[2016-05-14] MEDS ORDERED: DIOV160T6 PO (10:30)
[2016-05-14] MEDS ORDERED: FERR325T PO (10:30)
[2016-05-14] MEDS ORDERED: DIPH50CA PO (10:30)
--- NOTE | 2016-05-14 10:37 | HHI.DS ---
Psychiatry Discharge Summary Inpatient Psychiatric care?: Yes Advance Directive: No Reason Not Provided: not at this time Mental Health AdvanceDirective: No (not at this time) Health Care Proxy: No (not at this time) Admission Admission Date May 02, 2016 at 20:20 Admission Diagnosis: (1) Major depressive disorder, recurrent episode, severe, with psychosis ICD Code: F33.3 Brief History Pt is a [id number] who presents under a BA taken out by outpatient psychiatric ANRP alleging that suicidal ideations and depression. Pt reports that is sick and tired of being depressed and anxious and has been having increasing thoughts to commit suicide. She states that today she is feeling more hopeful because she is tolerating medication changes without side effects and believes that "these doctors may be able to figure it out and help me." She states that SI persists and she has been reading her bible to try and distract from these thoughts which are disturbing. No HI. She denies psychosis today but chart and RN state recent history of paranoia and seeing faces. Tobacco Use In Past 30 Days: No Tobacco Past 30 Days Alcohol Use: Never Hospital Course Patient's hospital course showed some persistence of patient's complaint of nausea though the intensity of the frequency of hydration did diminish. Her psychotic flavor did diminish markedly, mood stabilized denying suicidality homicidality. She showed good compliance with medication that times is some med seeking especially related to various anti-nausea antiasthmatic medications , she seemed to do best on Zofran. The been discussions with patient's family during treatment team the do feel she is doing remarkably better calm cooperative and pleasant they feel she has reached the maximum benefit of this mental health hospitalization. I agree. Patient seen today denies suicidality homicidality showed good mood and affect denying suicidality voices or visions. Patient to be discharged today to her family with Rx 1 month with Zofran. To follow-up with her primary care physician follow-up mental health in the community as arranged by our counselor Results Blood Pressure 161 / 72 Vital Signs Date Time Temp Pulse Resp B/P Pulse Ox O2 Delivery O2 Flow Rate FiO2 05/14/16 05:50 98.0 86 18 161/72 05/13/16 19:43 97 Urine toxicology positive for opiates Summary of Procedures None done Pending results at discharge: No Medications # of Antipsychotic meds at D/C: 1 Approp Antipsych med options 1 - Minimum of three failed multiple trials of monotherapy. 2 - Documented plan to taper to monotherapy due to previous use of multiple meds OR cross-taper in progress at D/C. 3 - Documentation of augmentation of Clozapine. 4 - Justification other than those listed in allowable values 1-3, document here : Discharge Discharge Date: May 14, 2016 Discharge Diagnosis: (1) Major depressive disorder, recurrent episode, severe, with psychosis Diagnosis: Principal ICD Code: F33.3 Mental Status Exam at Disch Alert oriented Afro[place] female, calm cooperative with good eye contact, normal active, patient euthymic good range intensity, no auditory or visual hallucinations no delusions noted, speech rate and rhythm within normal limits no formal thought disorders. Cognition grossly intact Pt Condition on Discharge: Stable Discharge Disposition: Discharge Home Discharge Instructions Diet Instructions: As Tolerated, No Restrictions, Diabetic Diet Additional Diet Instructions: 1800 calorie ADA diabetic diet Activities you can perform: Regular-No Restrictions Scheduled Appointment: [facility] Appointment Date: May 16, 2016 Appointment Time: 7:30 a.m. Discharge Time <= 30 minutes Discharge/Advance Care Plan Health Problems: (1) Major depressive disorder, recurrent episode, severe, with psychosis Goals to promote your health * To prevent worsening of your condition and complications * To maintain your health at the optimal level Directions to meet your goals Take your medications as prescribed Follow your dietary instruction Follow activity as directed Keep your appointments as scheduled Take your immunizations and boosters as scheduled If your symptoms worsen call your PCP, if no PCP go to Urgent Care Center or Emergency Room For 04/11 questions related to your inpatient stay or results of tests pending at discharge, please contact Dr. Ronak Klein at Smoking is Dangerous to Your Health. Avoid second hand smoking Ronak Klein MD May 14, 2016 10:37
[2016-05-14 11:00] VITALS: BP 162/76; PULSE 83
== END 2016-05-14 14:05 | disposition home or self-care (01) | DRG 885 ==
LOC: NEPJ 15:30 → NEDA 20:20 → H250 21:37 → H260 05-09 20:54
PROVIDERS: ADMIT Psychiatry & Neurology Psychiatry; ATTEND Psychiatry & Neurology Psychiatry
DX: F33.3 Major depressive disorder, recurrent, severe with psychotic symptoms (principal); N39.0 Urinary tract infection, site not specified; R45.851 Suicidal ideations; D64.9 Anemia, unspecified; I10 Essential (primary) hypertension; E87.5 Hyperkalemia; R11.0 Nausea; R07.9 Chest pain, unspecified; F41.9 Anxiety disorder, unspecified; R10.13 Epigastric pain; K21.9 Gastro-esophageal reflux disease without esophagitis; M25.569 Pain in unspecified knee
CPT/HCPCS: 80053; 80061; 80307; 80320; 81001; 83036; 84439; 84443; 85025; 99284; J2060; Q0163; Q0164; Q0169